=== PATIENT | female | born 1960 | race Caucasian/White ===

== ENCOUNTER → 2024-11-10 | Outpatient (CLI) | payer BC, SELFPAY ==
--- NOTE | 2024-11-10 | XR_ITS ---
Examination: Thoracic spine 3 views Technique one AP lateral coned lateral upper dorsal spine 3 views Exam date and time: November 10, 2024 1240 hours INDICATIONS: Patient fell 2 days ago with injury of the upper back, upper back pain. FINDINGS: Severe osteopenia Thoracic dextroscoliosis 17 degrees Chronic unchanged wedging mid dorsal vertebral bodies No acute thoracic fracture noted IMPRESSION: No acute thoracic fracture noted, advise clinical correlation and follow-up accordingly
--- NOTE | 2024-11-10 | XR_ITS ---
Examination: Left knee 4 views TECHNIQUE: AP oblique lateral axial left knee 4 views Exam date and time: November 10, 2024 1225 hours INDICATIONS: Patient fell 2 days ago with injury to the knee, knee pain. FINDINGS: Prominent osteopenia No acute fracture No patellar dislocation IMPRESSION: No acute fracture
--- NOTE | 2024-11-10 | XR_ITS ---
Examination: Lumbar spine, 5 views Technique: Lumbar spine AP, lateral, coned lateral lower lumbar spine, bilateral obliques 5 views Exam date and time: November 10, 2024 1225 hours INDICATIONS: Patient fell 2 days ago with injury to lower back, lower back pain. FINDINGS: Severe osteopenia No acute lumbar fracture Mild diffuse lumbar disc narrowing IMPRESSION: No acute lumbar fracture
--- NOTE | 2024-11-10 | XR_ITS ---
Examination: Sacrum and coccyx 3 views TECHNIQUE: AP inclined AP lateral sacrum and coccyx 3 views Exam date and time: November 10, 2024 1249 hours INDICATIONS: Patient fell 2 days ago with injury to the lower back, tailbone pain FINDINGS: Severe osteopenia. Symmetrical sacral foramina No acute sacral or coccygeal fracture IMPRESSION: No acute sacral or coccygeal fracture
--- NOTE | 2024-11-10 | XR_ITS ---
Examination: Cervical spine 7 views TECHNIQUE: AP, lateral, standing lateral flexion, standing lateral extension, AP odontoid, CALIX, FAROESE 7 views Exam date and time: November 10, 2024 1233 hours INDICATIONS: Cervical spine surgery one year ago, patient fell 2 days ago with injury to the neck, neck pain FINDINGS: Adequate alignment cervical vertebral bodies No cervical fracture Artificial disks C5-C6 C6-C7 with anatomic alignment Intact odontoid Adequate range of motion between flexion and extension No significant neural foraminal stenosis IMPRESSION: Artificial disc C5-C6, C6-C7 with anatomic alignment No cervical fracture Incidental note heavy soft tissue carotid vascular calcification, consider correlation with carotid Doppler sonography follow-up
--- NOTE | 2024-11-10 | XR_ITS ---
Examination:Right hip AP, lateral, AP pelvis 3 views Technique: Hip AP lateral, AP pelvis, 3 views Exam date and time:November 10, 2024 1225 hours INDICATIONS: Patient fell 2 days ago with injury to the right hip, right hip pain. FINDINGS: Severe osteopenia No right hip fracture or hip dislocation Left hip bones of the pelvis intact IMPRESSION: No acute hip or pelvic fracture.
== END | disposition home or self-care (01) ==
PROVIDERS: PCP Internal Medicine; Referring Provider Internal Medicine; Visit Provider Internal Medicine
DX: S89.92XA Unspecified injury of left lower leg, initial encounter (principal); S19.9XXA Unspecified injury of neck, initial encounter; S39.92XA Unspecified injury of lower back, initial encounter; S79.911A Unspecified injury of right hip, initial encounter; S29.9XXA Unspecified injury of thorax, initial encounter; W19.XXXA Unspecified fall, initial encounter; I65.29 Occlusion and stenosis of unspecified carotid artery
CPT/HCPCS: 72052; 72072; 72110; 72220; 73502; 73564

== ENCOUNTER → 2024-12-18 | Outpatient (CLI) | payer BC, SELFPAY ==
--- NOTE | 2024-12-18 13:00 | XR_ITS ---
Examination: Carotid arterial duplex scan, ultrasound. Date and time of exam: December 18, 2024 1244 hours INDICATIONS: Dizziness episodes beginning 6 months ago Technique: Multiple sonographic images have been obtained of the carotid arteries and vertebral arteries, B-mode/grayscale imaging and Doppler spectral analysis and color flow Peak systolic and diastolic velocities have been recorded. Systolic diastolic ratios have been calculated. Findings: Right peak systolic velocities: Distal internal carotid artery peak systolic velocity is 0.6 M/sec Proximal internal carotid artery peak systolic velocity is 0.9 M/sec Carotid bifurcation peak systolic velocity is 0.7 M/sec External carotid artery peak systolic velocity is 0.8 M/sec Vertebral artery flow is antegrade. Left peak systolic velocities: Distal internal carotid artery peak systolic velocity is 1.1 M/sec Proximal internal carotid artery peak systolic velocity is 1.0 M/sec Carotid bifurcation peak systolic velocity is 0.6 M/sec External carotid artery peak systolic velocity is 0.8 M/sec Vertebral artery flow is antegrade Doppler waveform analysis demonstrates no spectral broadening Impression: Right internal carotid artery demonstrates 0-10% stenosis. Left internal carotid artery demonstrates 0-10% stenosis.
--- NOTE | 2024-12-18 13:40 | XR_ITS ---
Examination: Bone densitometry Date and time of exam:December 18, 2024 1240 hours INDICATIONS: Family history mother hip fracture secondary to osteoporosis, hysterectomy age 42 knee fracture post hysterectomy Technique: Lumbar spine and hip total bone mineralization values of an calculated. Peak reference and age match control results have been displayed. Findings: Lumbar spine total bone mineralization is1.014 gm/cm2. This is 0.3 standard deviations below peak reference. This is 1.6 standard deviations above age-matched controls. Hip total bone mineralization is 0.792 gm/cm2 This is 1.2 standard deviations below peak reference. This is 0.1 standard deviations above age-matched controls Impression: There is normal mineralization based on lumbar spine measurements. There is osteopenia based on hip measurements Lumbar mineralization is decreased 3.2% compared with December 29, 2009 Hip mineralization is decreased 15.7% compared with December 21, 2009
== END | disposition home or self-care (01) ==
PROVIDERS: PCP Internal Medicine; Referring Provider Internal Medicine; Visit Provider Internal Medicine
DX: M85.88 Other specified disorders of bone density and structure, other site (principal); R42 Dizziness and giddiness
CPT/HCPCS: 77080; 93880

== ENCOUNTER 2025-01-18 09:43 | Inpatient (IN) | payer BC, MEDICARE, SELFPAY ==
[2025-01-18] VITALS (10 sets, daily range): BP systolic 111–160; BP diastolic 62–83; PULSE 53–69; RESP 17–19; TEMP 36.1–37.3; O2SAT 91–99; BMI 24.8
--- NOTE | 2025-01-18 09:47 | XR_ITS ---
Examination: AP chest single view Technique: Portable semiupright AP chest single view Exam date and time: January 18, 2025 1006 hrs. Indications: Lethargy chest pain today Findings: Normal heart size. The lungs are clear. Moderate osteopenia with cervical disc spacers Impression: No active disease
--- NOTE | 2025-01-18 09:47 | EKG_ITS ---
[facility] Test Date: 2025-01-18 Pat Name: CHASIDY GUERRERO Department: Room: - Gender: Female [employer]: : [id number] Requested By: Augustine Urena Order Number: [id number] Reading MD: Augustine Urena Measurements Intervals [place] Rate: 47 P: 28 WA: 188 QRS: 48 QRSD: 100 T: 64 QT: 538 QTc: 479 Interpretive Statements SINUS BRADYCARDIA WITH SINUS ARRHYTHMIA MODERATE ST DEPRESSION [0.05+ mV ST DEPRESSION] PROLONGED QT INTERVAL CRITICAL TEST RESULT Compared to ECG 09/24/2023 07:55:56 ST (T wave) deviation now present Prolonged QT interval now present Sinus rhythm no longer present Myocardial infarct finding no longer present /store/S0/[id number].pdf
--- NOTE | 2025-01-18 09:47 | XR_ITS ---
Examination: CT brain head without contrast. 2-D sagittal coronal reconstructions Date and time of exam:January 18, 2025 10 0 2:00 AM Indications: Weakness and apnea episodes beginning 8:30 AM this morning CTDI: vol (mGy):50.6 DLP: (mGycm):1024 Technique: Multiple CT axial sections of the brain have been obtained, 5 mm slice thickness. Contrast has not been administered. 2-D sagittal, coronal reconstructions have been obtained Low dose protocols were performed. One or more of the following dose reduction techniques were used; automated exposure control, adjustment of the mA and/or KV according to patient size, use of iterative reconstruction technique. Findings: No significant ventricular enlargement. Intra-axial or extra-axial hemorrhage density is not seen. No mass effect or midline shift Basal cisterns are not remarkable. Fourth ventricle is midline. Cranial vault intact. Impression: Negative for acute hemorrhage, mass effect or midline shift Advise clinical correlation follow-up accordingly
--- NOTE | 2025-01-18 10:04 | EDNOTE_ITS ---
ED General RME/HPI General Chief complaint: Weakness Stated complaint: GENERAL WEAKNESS Time Seen by Provider: 01/18/25 10:40 Arrival date/time: 01/18/25 09:43 RME / HPI RME / HPI narrative: Patient is a 65 years old female with PMH of hypertension and anxiety presented to the ED after was found extremely somnolent in her bed. She complains of BLE pain, lower abdomen pain, periodic chest pain and SOB. She is very anxious on presentation. She is extremely anxious and agitated. Her and daughters are at the bedside. Patient reports she took hydroxyzine last night for sleep. She took this medication before and never had any reactions. She was started on Sertraline in September and dose was increased in November, no side effects were reported. reported that they both had papular rash over their lower body approximately 1 month ago and were prescribed steroids with resolution of rash. The rash came back 1.5 weeks ago for patient only and she was again started on steroids for 5 days and rash has resolved. Today morning she woke up very tired, tried to ambulated but wasn't able to due to severe generalized weakness. Patient reported worsening of chronic diarrhea over the last 2 days for unknown reason. She denied any fever, chills, melena or hematoschezia. She reports nausea but no vomiting. Related Data Home Medications ?Medication ?Instructions ?Recorded ?Confirmed HCTZ/TRIAMTERENE (DYAZIDE 25/37.5) See Rx Instructions .Route 05/08/16 01/18/25 .COMPLEX ##30 gabapentin 300 mg capsule 300 mg PO QDAY 11/27/2301/13 hydroxyzine HCl 25 mg tablet 25 mg PO QDAY 01/18/25 loratadine 10 mg tablet (Allergy 10 mg PO Q24H 5 01/18/25 Relief (loratadine)) ondansetron HCl 4 mg tablet 4 mg PO Q6H PRN nausea and vomiting 01/18/25 01/18/25 sertraline 50 mg tablet 50 mg PO Q24H 01/18/2501/18 Previous Rx's ?Medication ?Instructions ?Recorded hydrocodone 5 mg-acetaminophen 325 1 tab PO BID PRN pa in #14 tabs 11/08/23 mg tablet methylprednisolone 4 mg tablets in See Rx Instructions PO PER PKG DIR 03/04/24 a dose pack (Medrol (Shahid)) #21 tabs Allergies Allergy/AdvReac Type Severity Reaction Status Date / Time codeine Allergy Mild Anaphylaxis Verified 11/30/23 09:04 tramadol Allergy Verified 11/30/23 09:04 Review of Systems Review of Systems Systems Reviewed: All systems reviewed, normal except as documented ED Exam Narrative Physical exam: Gen: Well-developed and well-nourished female. HEENT: NCAT, PERRLA, EOMI, MMM, anicteric conjunctivae. CVS: normal S1 and S2. RRR. No M/R/G. Resp: CTA B/L. No rhonchi, rales, crackles or wheezing. Abd: soft, tender in lower abdomen, non-distended. BS+ in all 4 quadrants. MSK: Good ROM in BUE & BLE. No edema. Varicose veins over BLE. Both legs are tender to touch. Neuro: CN II-XII grossly intact. Strength 5/5 in BUE & BLE. Alert and oriented x3. Psych: extremely anxious and restless. Course Course Course Narrative: Patient refused to take PO medication due to nausea. Her QTc was prolonged and she was given Ativan 0.5 mg for nausea and anxiety. She was found to have significant hypokalemia and hypophosphatemia. EKG showed sinus bradycardia. Started on potassium phosphate IV. Hospitalist team was called for admission for observation and electrolyte repletion. Quality Measures none Orders Category Date Time Status COVID-19 Screening Questionnaire NOW Care 01/18/25 11:18 Active Decision to Admit X1 Care 01/18/25 11:18 Completed EKG (ED ONLY) *Do not use* NOW Care 01/18/25 09:47 Completed IV [Insert IV] NOW Care 01/18/25 09:[address] head/brain wo con Stat Exams 01/18/25 09:47 Completed CXRP [XR chest 1V portable] Stat Exams 01/18/25 09:47 Completed EKG (ED Only) Stat Exams 01/18/25 09:47 Draft CBC Stat Lab 01/18/25 09:58 Completed CMP [Comprehensive Metabolic Panel] Stat Lab 01/18/25 09:58 Completed Magnesium Stat Lab 01/18/25 09:58 Completed Phosphorous Stat Lab 01/18/25 09:58 Completed Troponin I Stat Lab 01/18/25 09:58 Completed Urinalysis Stat Lab 01/18/25 12:58 Completed LORazepam [Ativan Inj] Med 01/18/25 10:54 Discontinued 0.5 mg IVP X1 ONE LORazepam [Ativan] Med 01/18/25 10:41 Discontinued 0.5 mg PO X1 ONE Potassium Phos [KPhos Additive] 22.5 mmol Med 01/18/25 10:58 Discontinued Sodium Chloride 0.9% 500 ml [Ns] 500 ml IV X1 Vital Signs Vital signs: Vital Signs Temperature 99.1 F 01/18/25 09:50 Pulse Rate 67 01/18/25 09:50 Respiratory Rate 18 01/18/25 09:50 Blood Pressure 158/83 H 01/18/25 09:50 Pulse Oximetry (%) 99 01/18/25 09:50 Oxygen Delivery Method Room Air 01/18/25 09:50 [facility] Patient data External records reviewed:: [facility] previous records Clinical information provided by:: patient, family and spouse Social determinants that could affect healthcare access:: none Patient has the following chronic illnesses:: HTN, anxiety How is presenting disease/condition affected by chronic disease/condition?: e xacerbated by Evaluation data The following diagnostics were reviewed and interpreted by me:: lab results, radiology exam(s) and EKG tracing(s) Lab and/or radiology exams considered but not ordered:: CTA Interpretation Summary: Patient was found to have sinus bradycardia, hypophosphatemia and hypokalemia. Utox was positive for THC. Medications Medications considered but not ordered:: none Medication administrations:: Medication Administration History Acetaminophen (Acetaminophen 325 Mg Tablet) 650 mg PO Q6HR PRN PRN Reason: Fever >101 and mild pain Stop: 02/17/25 14:12 Last Admin: 01/19/25 00:17 Dose: 650 mg Documented By: Admin: 01/18/25 16:35 Dose: 650 mg Documented By: WERNER Dextrose (Dextrose 50%-Water Inj 50 Ml Syringe) 25 ml IV Q15MIN PRN PRN Reason: BG 50-70 responsive npo pt Stop: 02/17/25 12:34 Dextrose (Dextrose 50%-Water Inj 50 Ml Syringe) 50 ml IV Q15MIN PRN PRN Reason: BG <50 OR BG <70 & pt unresponsive Stop: 02/17/25 12:34 Enoxaparin Sodium (Enoxaparin Sod Inj 40 Mg/0.4 Ml Syringe) 40 mg SC QDAY [facility] Stop: 02/02/25 08:59 Potassium Chloride (Kcl Ivpb) 10 meq in 100 mls @ 100 mls/hr IV Q1H IKE Last Admin: 01/19/25 00:02 Dose: Not Given Documented By: MLD Non-Admin Reason: ON HOLD BY MD Infusion: 01/18/25 19:59 Dose: Infused Documented By: Infusion: 01/18/25 18:54 Dose: 40 mls/hr Documented By: Admin: 01/18/25 18:33 Dose: 100 mls/hr Documented By: BM Sertraline HCl (Sertraline Hcl 25 Mg Tablet) 50 mg PO HS [facility] Stop: 02/17/25 20:59 Last Admin: 01/18/25 20:58 Dose: 50 mg Documented By: MLD Discontinued Medications Potassium Phosphate 22.5 mmol/ (Sodium Chloride) 507.5 mls @ 82.778 mls/hr IV X1 ONE Stop: 01/18/25 17:05 Last Admin: 01/18/25 11:30 Dose: 82.778 mls/hr Documented By: ED Lorazepam (Lorazepam 0.5 Mg Tablet) 0.5 mg PO X1 ONE Stop: 01/18/25 10:42 Last Admin: 01/18/25 11:05 Dose: Not Given Documented By: ED Non-Admin Reason: Duplicate Medication on eMAR Lorazepam (Lorazepam 2 Mg/Ml Vial) 0.5 mg IVP X1 ONE Stop: 01/18/25 10:55 Last Admin: 01/18/25 11:01 Dose: 0.5 mg Documented By: ED Ondansetron HCl (Ondansetron Inj 2 Mg/Ml Inj 2 Ml) 4 mg IV Q4HR PRN PRN Reason: NAUSEA OR VOMITING Stop: 02/17/25 11:59 Potassium Chloride (Potassium Chloride 20 Meq Tabcr) 20 meq PO X1 ONE Stop: 01/18/25 16:54 Last Admin: 01/18/25 17:06 Dose: Not Given Documented By: BM Non-Admin Reason: Cancelled by Provider Potassium Chloride (Potassium Chloride 20 Meq Tabcr) 40 meq PO X1 ONE Stop: 01/18/25 16:57 Last Admin: 01/18/25 17:11 Dose: Not Given Documented By: WERNER Non-Admin Reason: switched to liquid Potassium Chloride (Potassium Chloride 10% 20 Meq/15 Ml Udc) 40 meq PO X1 ONE Stop: 01/18/25 17:09 Last Admin: 01/18/25 17:17 Dose: 40 meq Documented By: WERNER Potassium Chloride (Potassium Chloride 10% 20 Meq/15 Ml Udc) 40 meq PO X1 ONE Stop: 01/18/25 19:59 Last Admin: 01/18/25 20:12 Dose: 40 meq Documented By: MLD Potassium Chloride (Potassium Chloride 20 Meq Tabcr) 40 meq PO X1 ONE Stop: 01/18/25 23:47 Last Admin: 01/19/25 00:04 Dose: 40 meq Documented By: VANCE Scopolamine (Scopolamine 1 Mg Tdsy) 1 mg TOP Q3D IKE Stop: 01/18/25 18:31 Last Admin: 01/18/25 18:32 Dose: 1 mg Documented By: WERNER Ativan 0.5 mg x1. Consultations Consultation(s) initiated? (list below): No Diagnosis Differential Diagnosis ED Complaint MDM: Anxiety reaction, THC intoxication, medication overdose or reaction Most likely diagnosis given after review of the tests above:: Medication reaction or overdose Admission Indicated Admission indicated?: indicated Explain why admission is indicated or not indicated:: Patient has significant electrolyte abnormalities and EKG changes requiring closer observation and electrolyte repletion. Admission Request Was there a request for admission?: Yes Admission Attestation Admission request attestation: Discussed case with Dr. Fernández from Hospitalist service regarding admission. Discussed patients ED course, exam findings, labs, and radiology results. The Hospitalist agrees to accept the patient for admission. Disposition Plan Disposition Plan: Admit Medical Decision Making MDM Narrative MDM Narrative: Patient presented with inconsistent medical history with multiple complaints which do not fit clinical picture of acute CVA. Patient was extremily anxious and emotional but her heart rate remained low at 40s. Given medical history, clinical presentation and significant electrolyte abnormalities and EKG changes (sinus bradycardia and QTc prolongation) we decided to admit patient for closer monitoring, electrolyte repletion and further investigation. Differential Diagnosis Differential Diagnosis: Anxiety reaction, THC intoxication, medication overdose or reaction Lab Data 01/19/25 05:45 01/18/25 22:17 Labs: Lab Results 01/18/25 Range/Units 09:58 WBC 12.3 H (3.6-11.0) Thou/mm3 RBC 5.07 (4.00-5.20) Miln/mm3 Hgb 12.2 (12.0-16.0) g/dL Hct 38.3 (36.0-46.0) % MCV 76 L (80-100) fL MCH 24.1 L (25.0-35.0) pg MCHC 31.9 (31.0-37.0) g/dl RDW Std Deviation 41.2 (36.4-46.3) fL Plt Count 462 H (140-440) Thou/mm3 Neut % (Auto) 69 (37-80) % Lymph % (Auto) 19 (10-50) % [place] % (Auto) 10 (0-12) % Eos % (Auto) 1 (0-10) % Baso % (Auto) 1 (0-2.5) % Neut # (Auto) 8.4 H (1.8-7.7) Thou/mm3 Lymph # (Auto) 2.3 (1.0-4.8) Thou/mm3 [place] # (Auto) 1.3 H (0.0-0.8) Thou/mm3 Eos # (Auto) 0.1 (0.0-0.5) Thou/mm3 Baso # (Auto) 0.1 (0.0-0.2) Thou/mm3 Immature Gran # (Auto) 0.04 H (0.00-0.00) Thou/mm3 Absolute Nucleated RBC 0.00 (0.00-0.00) Thou/mm3 Immature Gran % 0 (0-0) % Nucleated RBC % 0 (0) /100 WBC Sodium 141 (136-145) mMol/L Potassium 2.4 L* (3.4-5.1) mMol/L Chloride 96 L (98-107) mMol/L Carbon Dioxide 35.5 H (20.0-31.0) mMol/L Anion Gap 10 (7-16) BUN 12 (9-23) mg/dL Creatinine 0.9 (0.6-1.3) mg/dL Estim Creat Clear Calc 50.3 L (>60) mL/min eGFR > 60 (60 - ) See Note BUN/Creatinine Ratio 13 (12-20) Ratio Glucose 104 (74-106) mg/dL Calculated Osmolality 280 (275-295) Calcium 10.3 (8.3-10.6) mg/dL Corrected Calcium 10.3 H (8.5-10.1) mg/dL Phosphorus 1.6 L (2.4-5.1) mg/dL Magnesium 2.3 (1.6-2.6) mg/dL Iron 61 (50-170) mcg/dL TIBC 491 H (250-425) mcg/dL Iron Saturation 12 L (20-55) % Unsat Iron Binding 430 H (225-295) Total Bilirubin 0.9 (0.3-1.2) mg/dL AST 25 (0-34) U/L ALT 14 (10-49) U/L Alkaline Phosphatase 93 (46-116) U/L Troponin I 0.048 H* (0.0-0.045) ng/mL Total Protein 7.4 (5.7-8.2) gm/dL Albumin 4.7 (3.4-4.8) gm/dL Globulin 2.7 (2.3-3.5) gm/dL Albumin/Globulin Ratio 1.7 (1.2-2.2) Discharge Plan Plan Patient Disposition: Admit Acute Care w/in Hospital Disposition Comment: RM [id number] Problem List Clinical Impression: Medication reaction, Intoxication by drug, Electrolyte imbalance, Bradycardia, sinus
[2025-01-18 10:33] LABS: Basophils # (Auto) 0.1 Thou/mm3 (0.0-0.2); Basophils % (Auto) 1 % (0-2.5); Eosinophils # (Auto) 0.1 Thou/mm3 (0.0-0.5); Eosinophils % (Auto) 1 % (0-10); Hematocrit 38.3 % (36.0-46.0); Hemoglobin 12.2 g/dL (12.0-16.0); Immature Granulocytes % (Auto) 0 % (0-0); Immature Granulocytes Auto 0.04 Thou/mm3 (0.00-0.00); Lymphocytes # (Auto) 2.3 Thou/mm3 (1.0-4.8); Lymphocytes % (Auto) 19 % (10-50); Mean Corpuscular HGB Conc 31.9 g/dl (31.0-37.0); Mean Corpuscular Hemoglobin 24.1 pg (25.0-35.0); Mean Corpuscular Volume 76 fL (80-100); Monocytes # (Auto) 1.3 Thou/mm3 (0.0-0.8); Monocytes % (Auto) 10 % (0-12); Neutrophils # (Auto) 8.4 Thou/mm3 (1.8-7.7); Neutrophils % (Auto) 69 % (37-80); Nucleated Red Blood Cell % 0 /100 WBC (0); Platelet Count 462 Thou/mm3 (140-440); RDW Standard Deviation 41.2 fL (36.4-46.3); Red Blood Count 5.07 Miln/mm3 (4.00-5.20); White Blood Count 12.3 Thou/mm3 (3.6-11.0)
--- NOTE | 2025-01-18 10:43 | PC.NURSE ---
Pt. here from home to room 2, pt. states yesterday she had diarrhea X 2, pt. states she is having pain to the left lower abdominal quadrant, pt. denies any vomiting. Pt. states that this morning she started feeling weak. Pt.'s states that pt. woke up and stated she was weak and stated she wanted to go to [facility] and then the hospital. Spouse states that pt. took a shower and then sat down on the toilet stating she felt weaker. Pt. then stated she wanted to go to the hospital. Pt. states her legs were itching last night. Pt. has min. bruising to her hands bilateral.
[2025-01-18 10:53] LABS: Alanine Aminotransferase 14 U/L (10-49); Albumin, Serum 4.7 gm/dL (3.4-4.8); Albumin/Globulin Ratio 1.7 (1.2-2.2); Alkaline Phosphatase 93 U/L (46-116); Anion Gap 10 (7-16); Aspartate Amino Transferase 25 U/L (0-34); BUN/Creatinine Ratio 13 Ratio (12-20); Bilirubin,Total 0.9 mg/dL (0.3-1.2); Blood Urea Nitrogen 12 mg/dL (9-23); Calcium 10.3 mg/dL (8.3-10.6); Calcium (Corrected) 10.3 mg/dL (8.5-10.1); Carbon Dioxide 35.5 mMol/L (20.0-31.0); Chloride 96 mMol/L (98-107); Creatinine (Component) 0.9 mg/dL (0.6-1.3); Estimated Creatinine Clearance 50.3 mL/min (>60); Globulin 2.7 gm/dL (2.3-3.5); Glucose 104 mg/dL (74-106); Magnesium 2.3 mg/dL (1.6-2.6); Osmolality,Calculated 280 (275-295); Phosphorous 1.6 mg/dL (2.4-5.1); Sodium 141 mMol/L (136-145); Total Protein 7.4 gm/dL (5.7-8.2); eGFR > 60 See Note
[2025-01-18 10:56] LABS: Potassium 2.4 mMol/L (3.4-5.1); Troponin I 0.048 ng/mL (0.0-0.045)
[2025-01-18] MEDS: LORazepam 2 MG/ML VIAL 0.5 MG IVP (11:01)
[2025-01-18] MEDS: POTASSIUM PHOS 22.5 MMOL in SODIUM CHLORIDE 0.9% 500 ML 500 ML 82.778 MMOL IV (11:30)
--- NOTE | 2025-01-18 12:00 | XR_ITS ---
Examination: CTA carotids with intravenous contrast CTA brain, head with intravenous contrast. 2-D sagittal, coronal reconstructions. 3-D reconstructions. Exam date and time: December 21, 2024 1210 hrs. Indications: Hypokalemia weakness abdominal pain today CTDI: vol (mGy) 15.1 DLP: (mGycm) 423 Technique: Multiple CTA axial brain, head carotid images post intravenous contrast injection 75 cc cc, [id number]. 2-D sagittal, coronal reconstructions. 3-D reconstructions, 3-D post processing including vascular maximum intensity projection images. Low dose protocols were performed. One or more of the following dose reduction techniques were used; automated exposure control, adjustment of the mA and/or KV according to patient size, use of iterative reconstruction technique. Findings: No significant common carotid carotid bifurcation or internal carotid artery stenoses Codominant vertebral arteries with no critical stenoses Intracranial vertebral arteries basilar artery posterior cerebral branches fill with no occlusions Juxtasellar internal carotid arteries M1 segments middle cerebral arteries middle cerebral artery trifurcation vessels anterior cerebral arteries demonstrate no large vessel occlusions or thrombus Impression: No significant neck arterial stenoses No cerebral large vessel arterial occlusions or thrombus
--- NOTE | 2025-01-18 12:11 | PC.NURSE ---
Dr. Yessica Alberts on tele monitor, pt. in CT for CT angio, stroke alert called at 1200, gave Dr. Alberts requested information.
[2025-01-18 12:15] LABS: Iron 61 mcg/dL (50-170); Percent Iron Saturation 12 % (20-55); Total Iron Binding Capacity 491 mcg/dL (250-425); Unsaturated Iron Binding 430 (225-295)
--- NOTE | 2025-01-18 12:22 | PD.RESHP ---
Documentation for date of: 01/18/25 [facility] History of Present Illness History of present illness: Ms. Aguilar is a 65 year old female with past medical history significant for hypertension, depression and degenerative bone disease presented to the ED complaing of generalized weakness and confusion. Pt is sleeping therefore history is taken from and daughter at bedside. Per , patient has been feeling generalized weakness yesterday evening and this morning when she woke up patient was very weak requiring help with shower, but couple hours later patient started becoming increasingly confused. Pt was unable to perform ADL and was requing assitance. When patient's daughter arrived this morning at their home patient was somnolent, laying in bed was unable to get out of bed and was complaining of leg pain and hard feeling funny and waxing and waning of confusion. Per daughter patient was having slurred speech and was not able to get the words out on the sounds she was making sounds with her mouth that did not make sense. She was not able to formulate sentences. Pt also could not feel her right arm. Patient runs a daycare center therefore she has been having flu-like symptoms and some nausea for the past week and a half. Denies any previous history of similar episodes. Per daughter patient has been complaining of legs pain as well but patient has degenerative bone disease and sees Dr. Lewis and has an appointment coming up with him next week. Pt's zoloft dose was increased from 25mg to 50mg couple months ago and was recently started on atarax and steroids for generalized pruritus 1.5 month ago. ED course: vitals: BP 158/83 Labs: WBC 12.3, MCV 76, MCH 24.1, Plt 462, Potassium 2.4, chloride 96, Bicarb 35.5, corrected calcium 10.3, phosphorus 1.6, Troponin 0.048 Urinalysis - negative Urine tox: positive for marijuana Images: CXR:No active disease, Moderate osteopenia with cervical disc spacers Head CT: Negative for acute hemorrhage, mass effect or midline shift Head CTA: No significant neck arterial stenoses, No cerebral large vessel arterial occlusions or thrombus EKG: Sinus bradycardia with prolonged QT interval PMH:Hypertension, depression, degenerative bone disease PSH: Gastric bypass surgery more than 15 years ago with a revision 10 years ago, spinal surgeries x2, tonsillectomy, appendectomy, hysterectomy SH: Former tobacco smoker (quit 20 years ago), smokes marijuana, denies illicit drugs and alcohol Allergies: Codeine and tramadol Home Meds: triamterene-hctz, sertraline, hydroxyzine, acyclovir Review of Systems Review of Systems Systems Reviewed: All systems reviewed, normal except as documented Exam Vital Signs Temp Pulse Resp BP Pulse Ox O2 Del Method 98.3 F 65 17 136/81 H 95 Room Air 01/18/25 11:35 01/18/25 11:35 01/18/25 11:35 01/18/25 11:35 01/18/25 11:35 01/18/25 11:35 Narrative Exam GENERAL: A&Ox3 . Awake, Not in acute distress NEURO: no focal neurological deficits HEENT: Atraumatic, Normocephalic. mucous membranes moist. Eyes open, symmetrical, & clear HEART: Normal Heart Sounds LUNGS: Clear to auscultation with no wheezing or crackles. ABDOMEN: soft, non-distended, non-tender, bowel sounds heard, no guarding or rebound tenderness SKIN: No Rash or ecchymoses EXTREMITIES: No edema, tenderness, pedal pulses palpated NEURO:? ? MENTAL STATUS:?AAOx3 ? LANG/SPEECH: Fluent, intact naming, repetition & comprehension ? CRANIAL NERVES: ? II: Pupils equal and reactive, no RAPD,?normal visual field and fundus ? III, IV, : EOM intact, no gaze preference or deviation ? V: normal ? VII: no facial asymmetry ? VIII: normal hearing to speech ? MOTOR: Weakness bilaterally on lower extremities ? SENSORY: Normal to touch, temperature & pin prick in all extremities ? COORD: no tremor, no dysmetria Results: Labs 01/19/25 05:45 01/19/25 05:45 Labs: Short CBC 01/18/25 Range/Units 09:58 WBC 12.3 H (3.6-11.0) Thou/mm3 Hgb 12.2 (12.0-16.0) g/dL Hct 38.3 (36.0-46.0) % Plt Count 462 H (140-440) Thou/mm3 BMP 01/18/25 09:58 Sodium 141 Potassium 2.4 L* Chloride 96 L Carbon Dioxide 35.5 H BUN 12 Creatinine 0.9 Glucose 104 Calcium 10.3 Cardiac Enzymes 01/18/25 Range/Units 09:58 Troponin I 0.048 H* (0.0-0.045) ng/mL Liver Function 01/18/25 Range/Units 09:58 Total Bilirubin 0.9 (0.3-1.2) mg/dL AST 25 (0-34) U/L ALT 14 (10-49) U/L Alkaline Phosphatase 93 (46-116) U/L Albumin 4.7 (3.4-4.8) gm/dL Quality Measures Quality Measures stroke Suspected type of Stroke: Acute Ischemic Tenecteplase given: Reason(s) Tenecteplase not given: Outside the time window not given Rehab services: PT evaluation ordered and Speech Language Pathology eval ordered VTE Prophylaxis: pharmaceutical Antithrombotic by day 2:: not indicated (describe) Statin ordered: not ordered Anticoagulation ordered for A-fib or flutter (current or hx): not indicated Advance care planning discussed with:: significant other and child Medications Home Medications and Allergies Home Medications ?Medication ?Instructions ?Recorded ?Confirmed ?Type HCTZ/TRIAMTERENE (DYAZIDE 25/37.5) See Rx Instructions .Route 05/08/16 01/18/25 History .COMPLEX ##30 gabapentin 300 mg capsule 300 mg PO QDAY 11/27/23 01/18/25 History hydroxyzine HCl 25 mg tablet 25 mg PO QDAY 01/18/25 01/18/25 History loratadine 10 mg tablet (Allergy 10 mg PO Q24H 01/18/25 01/18/25 History Relief (loratadine)) ondansetron HCl 4 mg tablet 4 mg PO Q6H PRN nausea and vomiting 01/18/25 01/18/25 History sertraline 50 mg tablet 50 mg PO Q24H 01/18/25 01/18/25 History Allergies Allergy/AdvReac Type Severity Reaction Status Date / Time codeine Allergy Mild Anaphylaxis Verified 11/30/23 09:04 tramadol Allergy Verified 11/30/23 09:04 Visit Medications Potassium Phosphate 22.5 mmol/ (Sodium Chloride) 507.5 mls @ 82.778 mls/hr IV X1 ONE Stop: 01/18/25 17:05 Last Admin: 01/18/25 11:30 Dose: 82.778 mls/hr Ondansetron HCl (Ondansetron Inj 2 Mg/Ml Inj 2 Ml) 4 mg IV Q4HR PRN PRN Reason: NAUSEA OR VOMITING Stop: 02/17/25 11:59 Discontinued Medications Lorazepam (Lorazepam 0.5 Mg Tablet) 0.5 mg PO X1 ONE Stop: 01/18/25 10:42 Last Admin: 01/18/25 11:05 Dose: Not Given Lorazepam (Lorazepam 2 Mg/Ml Vial) 0.5 mg IVP X1 ONE Stop: 01/18/25 10:55 Last Admin: 01/18/25 11:01 Dose: 0.5 mg Assessment & Plan Plan Ms. Aguilar is a 65 year old female with past medical history significant for hypertension, depression and degenerative bone disease presented to the ED complaining of generalized weakness and confusion. #Acute encephalopathy DDx: toxic metabolic, Acute CVA Teleneuro was consulted, with recommendation of MRI pending to rule out CVA. CVA r/o -LKW: Unknown ( at bedside says pt complained of weakness last night 01/17) -NIHSS Score: 1 -pre morbid rank: scale0 Points = No symptoms at all -Tele neuro consulted, recommendations appreciated -Head CT: Negative for acute hemorrhage, mass effect or midline shift -Head CTA: No significant neck arterial stenoses, No cerebral large vessel arterial occlusions or thrombus Plan: - Neuro checks q6HR - Keep head of bed elevated at 30 degrees -?limit sedating meds - Euglycemia and Avoid Hyperthermia (PRN Acetaminophen) -?allow permissive HTN for first 24 hours than slowly and gradually goal normotension thereafter -?uunhl-izzppzdot-tslnuqecsq workup (especially with U/A, UDS, CXR) -?MRI brain ordered -?echo with bubble study ordered - follow up lipid panel, HbA1c, TSH with free T4 - Referral to PT/OT/speech therapy -Tele neuro recommended: consider routine EEG to look for encephalopathic vs epileptiform patterns -In house neurologist Dr. Fontana consulted, appreciate recommendations #Bradycardia #Hypokalemia in the setting of #Metabolic alkalosis #Hypophosphatemia -On admission potassium 2.4, Pt receive Kphos, repeat potassium 2.0 -additional 80meq of K repleated -will monitor renal panel closely -On admission phosphorous 1.6, likely secondary to poor oral intake #elevated troponin -likely demand ischemia, Pt denies chest pain -On admission troponin 0.048 ->0.041 -trending troponin #Suspicion for microcytic anemia #Hx. of gastric bypass surgery -CBC shows MCV 76, MCHC 24.1, hemaglobin is 12.3 -Iron panel: Iron 61, TIBC 491, Iron saturation 12%, unsat Iron binding 430 -Pt has a history of gastric bypass surgery with a revision -B12 and folate ordered #Depression -Pt's home zoloft is resumed #substance abuse -Pt endorses to smoking marijuana daily -Urine tox is positive for maijuana Health Maintenance Disposition: Telemetry- acute CVA rule out DVT Prophylaxis: enoxaparin 40mg Qdaily Lines: Peripheral lines Code status: Full Assessment and plan discussed with my senior resident Dr. Fernández & attending physician Dr. Ara Dobson (PGY-1)- Internal medicine resident
--- NOTE | 2025-01-18 12:54 | PD.TNEURO ---
Tele Neuro Consultation Consultation Date 01/18/25 Most Recent Vital Signs Last Vital Signs Temp 98.3 F 01/18/25 11:35 Pulse 65 01/18/25 11:35 Resp 17 01/18/25 11:35 BP 136/81 H 01/18/25 11:35 Pulse Ox 95 01/18/25 11:35 O2 Del Method Room Air 01/18/25 11:35 Consultation Narrative [facility] Tele[facility] Patient Name:???Anjelica Aguilar Date of :???1960 Identification Number:??? Date of Service:???01/18/2025 12:02:07 Diagnosis:?G93.49 - Encephalopathy Multifactorial Impression: ?65 yr old female with sig PMHx of HTN, depression per a daughters (who are nurses), TLKW last night, woke up feeling weak and confused and has episodes of staring spells. she also had been complaining of right arm numbness. an initial CT head was non acute. she was found to be hypokalemic (K 2.4). she was started on atarax and steroids. ? ?NIHSS = 1 she is lethargic recently received Ativan. ? ?CTA head and neck No LVO ? ?MRI brain is scheduled ? ?DDX suspect more encephalopathic picture, vs consider TIA, or partial seizure .. ? ? Our recommendations are outlined below. Recommendations: ? Stroke/Telemetry Floor ? Neuro Checks ? Bedside Swallow Eval ? DVT Prophylaxis ? IV Fluids, Normal Saline ? Head of Bed 30 Degrees ? Euglycemia and Avoid Hyperthermia (PRN Acetaminophen) ?pending her hospital course and brain MRI consider routine EEG to look for encephalopathic vs epileptiform patterns Sign Out: ? Discussed with Primary Attending Advanced Imaging: CTA Head and Neck Completed. LVO:No Patient in not a candidate for ABDIRAHMAN Metrics: Last Known Well: Unknown Dispatch Time: 01/18/2025 12:02:07 Initial Response Time: 01/18/2025 12:04:27Symptoms: right arm weakness and numbness. Initial patient interaction: 01/18/2025 12:14:32 NIHSS Assessment Completed: 01/18/2025 12:32:00Patient is not a candidate for Thrombolytic. Thrombolytic Medical Decision: 01/18/2025 12:32:02Patient was not deemed candidate for Thrombolytic because of following reasons: LKW outside 4.[address] head showed no acute hemorrhage or acute core infarct. Primary Provider Notified of Diagnostic Impression and Management Plan on: 01/18/2025 13:25:48 Spoke With: Dr Dobson Able to Reach 01/18/2025 13:25:48 History of Present Illness:Patient is a 65 year old Female. Inpatient stroke alert was called for symptoms of right arm weakness and numbness. 65 yr old female with sig PMHx of HTN, depression per a daughter Carotid artery disease, TLKW last night, woke up feeling weak and confused and has episodes of staring spells. she also had been complaining of right arm numbness. an initial CT head was non acute. she was found to be hypokalemic. she was started on atarax and steroids. Past Medical History: ?Hypertension ?There is no history of Diabetes Mellitus ?There is no history of Hyperlipidemia ?There is no history of Atrial Fibrillation ?There is no history of Coronary Artery Disease ?There is no history of Stroke ?There is no history of Covid-19 ?There is no history of Seizures ?There is no history of Migraine Headaches ?There is no history of Dementia/MCI Medications: No Anticoagulant use? No Antiplatelet use Reviewed EMR for current medications Allergies:? Reviewed Social History: Patient Is: Smoking: Former Drug Use: No Family History: There is no family history of premature cerebrovascular disease pertinent to this consultation ROS : 14 Points Review of Systems was performed and was negative except mentioned in HPI. Past Surgical History: There Is No Surgical History Contributory To Today?s Visit NIHSS may not be reliable due to: patient lethargic, [facility] Examination: BP(136/81),?Pulse(64),?Blood Glucose(111) 1A: Level of Consciousness - Arouses to minor stimulation?+ 1 1B: Ask Month and Age - Both Questions Right?+ 0 1C: Blink Eyes & Squeeze Hands - Performs Both Tasks?+ 0 2: Test Horizontal Extraocular Movements - Normal?+ 0 3: Test Visual Delgado - No Visual Loss?+ 0 4: Test Facial Palsy (Use Grimace if Obtunded) - Normal symmetry?+ 0 5A: Test Left Arm Motor Drift - No Drift for 10 Seconds?+ 0 5B: Test Right Arm Motor Drift - No Drift for 10 Seconds?+ 0 6A: Test Left Leg Motor Drift - No Drift for 5 Seconds?+ 0 6B: Test Right Leg Motor Drift - No Drift for 5 Seconds?+ 0 7: Test Limb Ataxia (FNF/Heel-Schultz) - No Ataxia?+ 0 8: Test Sensation - Normal; No sensory loss?+ 0 9: Test Language/Aphasia - Normal; No aphasia?+ 0 10: Test Dysarthria - Normal?+ 0 11: Test Extinction/Inattention - No abnormality?+ 0 NIHSS Score:?1 Pre-Morbid Modified Mitesh Scale:0 Points = No symptoms at all Spoke with :?Dr Dobson This consult was conducted in real time using interactive audio and video technology. Patient was informed of the technology being used for this visit and agreed to proceed. Patient located in hospital and provider located at home/office setting. Patient is being evaluated for possible acute neurologic impairment and high probability of imminent or life-threatening deterioration. I spent total of 40 minutes providing care to this patient, including time for face to face visit via telemedicine, review of medical records, imaging studies and discussion of findings with providers, the patient and/or family. Dr Yessica Alberts [facility] For Inpatient follow-up with [facility] physician please call [facility] at . As we are not an outpatient service for any post hospital discharge needs please contact the hospital for assistance. If you have any questions for the [facility] physicians or need to reconsult for clinical or diagnostic changes please contact us via [facility] at .
--- NOTE | 2025-01-18 13:03 | PC.NURSE ---
Pt. taken to RR via wheel chair, urine collected via hat. Pt. tolerated well.
--- NOTE | 2025-01-18 13:05 | PC.NURSE ---
Pt. resting laying in bed in room 2, pt.'s is bedside and pt.'s daughter.
[2025-01-18 13:16] LABS: Collection Type, Urine Clean Catch
[2025-01-18 13:31] LABS: Bilirubin,Urine Negative (Negative); Blood,Urine Negative (Negative); Clarity,Urine Clear (Clear/Hazy); Color,Urine Lt-Yellow (Lt Yel-Yel); Glucose, Urine Negative (Negative); Ketones,Urine 1+ (Negative); Leukocyte Esterase,Urine Positive (Negative); Nitrite,Urine Negative (Negative); Protein,Urine Negative (Neg - Trace); RBC,Urine 1 /hpf (0-3); Squamous Epithelial Cell,Urine 14 /hpf (0-5); Urobilinogen,Urine Negative mg/dL (0.0-1.0); WBC,Urine 4 /hpf (0-5)
--- NOTE | 2025-01-18 13:35 | PCS.ST ---
swallow eval completed. Recommend D2 and thin liquids d/t missing dentition. See report for additional details
--- NOTE | 2025-01-18 14:14 | EKG_ITS ---
[facility] (Formerly [facility])[3] Test Date: 2025-01-18 Pat Name: CHASIDY GUERRERO Department: Room: [facility] Gender: Female Eyeglass Fitter: HEIKE : 1960 Requested By: Herve Dobson Order Number: [id number] Reading MD: Herve Dobson Measurements Intervals [place] Rate: 58 P: 52 ID: [id number] QRS: 33 QRSD: 99 T: 51 QT: 483 QTc: 476 Interpretive Statements SINUS BRADYCARDIA PROLONGED QT INTERVAL Compared to ECG 01/18/2025 10:03:42 Sinus arrhythmia no longer present ST (T wave) deviation no longer present /store/S0/[id number]/[id number].pdf
[2025-01-18 15:31] LABS: Amphetamine/Methamp Scrn,U Negative (Negative); Barbiturate Screen,Urine Negative (Negative); Benzodiazepines Screen,Urine Negative (Negative); Benzoylecgonine Screen, Ur Negative (Negative); Fentanyl Screen,Urine Negative (Negative); Opiate Screen,Urine Negative (Negative); THC Screen,Urine Positive (Negative)
[2025-01-18] MEDS: ACETAMINOPHEN 325 MG TABLET 650 MG PO (16:35)
--- NOTE | 2025-01-18 16:52 | PC.NURSE ---
pt latonia 50 hr, Dr. Dobson notified, EKG ordered
[2025-01-18 16:53] LABS: Albumin, Serum 3.9 gm/dL (3.4-4.8); Anion Gap 10 (7-16); BUN/Creatinine Ratio 14 Ratio (12-20); Blood Urea Nitrogen 10 mg/dL (9-23); Calcium (Corrected) 9.1 mg/dL (8.5-10.1); Carbon Dioxide 34.5 mMol/L (20.0-31.0); Chloride 97 mMol/L (98-107); Creatinine (Component) 0.7 mg/dL (0.6-1.3); Estimated Creatinine Clearance 64.7 mL/min (>60); Glucose 87 mg/dL (74-106); Osmolality,Calculated 279 (275-295); Phosphorous 3.6 mg/dL (2.4-5.1); Sodium 141 mMol/L (136-145); Troponin I 0.041 ng/mL (0.0-0.045); eGFR > 60 See Note
[2025-01-18] MEDS: POTASSIUM CHLORIDE 10% 20 MEQ/15 ML UDC 40 MEQ PO ×2 (17:17→20:12)
[2025-01-18] MEDS: SCOPOLAMINE 1 MG TDSY TOP (18:32)
[2025-01-18] MEDS: POTASSIUM CHL 10 mEq IVPB 10 MEQ/100 ML BAG 100 MEQ IV (18:33)
--- NOTE | 2025-01-18 19:51 | PC.NURSE ---
pt is crying, screaming and c/o pain to IV site with Potassium running, family at bedside. ice pack applied on site, paused IV per pt and family request . Melissa Swann notified and new order given.
[2025-01-18 20:29] LABS: Folate 14.87 ng/mL (>5.38); Vitamin B12 280 pg/mL (211-911)
[2025-01-18] MEDS: SERTRALINE HCL 25 MG TABLET 50 MG PO (20:58)
[2025-01-18 22:51] LABS: Anion Gap 6 (7-16); BUN/Creatinine Ratio 13 Ratio (12-20); Blood Urea Nitrogen 10 mg/dL (9-23); Calcium 8.8 mg/dL (8.3-10.6); Calcium (Corrected) 8.8 mg/dL (8.5-10.1); Carbon Dioxide 32.7 mMol/L (20.0-31.0); Chloride 103 mMol/L (98-107); Creatinine (Component) 0.8 mg/dL (0.6-1.3); Estimated Creatinine Clearance 56.6 mL/min (>60); Glucose 90 mg/dL (74-106); Osmolality,Calculated 282 (275-295); Potassium 2.8 mMol/L (3.4-5.1); Sodium 142 mMol/L (136-145); eGFR > 60 See Note
--- NOTE | 2025-01-18 23:05 | PC.NURSE ---
RECEIVED CALL FROM PT'S POC GER, UPDATE GIVEN. RENAL PANEL RESULT STILL PENDING.
[2025-01-19] VITALS: BP 141/73; PULSE 60; RESP 16; TEMP 36.4; O2SAT 95
[2025-01-19 00:03] LABS: Phosphorous 2.5 mg/dL (2.4-5.1)
[2025-01-19] MEDS: POTASSIUM CHLORIDE 20 mEq TABCR 40 MEQ PO ×2 (00:04→09:31)
[2025-01-19] MEDS: ACETAMINOPHEN 325 MG TABLET 650 MG PO ×3 (00:17→19:28)
--- NOTE | 2025-01-19 01:29 | PD.VPROG1 ---
Telemedicine visit statement This visit was conducted with the use of phone was obtained on 01/18/25 Documentation for date of: 01/18/25 Subjective Subjective Interval history: patient is in telemetry. She has no more numbness but and the feeling tired. She did have pain in the lower extremities resting now after taking Tylenol few hours ago. Virtual exam Vital Signs Temp Pulse Resp BP Pulse Ox O2 Del Method 97.5 F 60 16 141/73 H 95 Room Air 01/19/25 00:00 01/19/25 00:00 01/19/25 00:00 01/19/25 00:00 01/19/25 00:00 01/19/25 00:00 Objective Labs 01/18/25 09:58 01/18/25 22:17 Labs: Laboratory Results - last 24 hr 01/18/25 01/18/25 01/18/25 09:58 12:58 15:47 WBC 12.3 H RBC 5.07 Hgb 12.2 Hct 38.3 MCV 76 L MCH 24.1 L MCHC 31.9 RDW Std Deviation 41.2 Plt Count 462 H Neut % (Auto) 69 Lymph % (Auto) 19 [place] % (Auto) 10 Eos % (Auto) 1 Baso % (Auto) 1 Neut # (Auto) 8.4 H Lymph # (Auto) 2.3 [place] # (Auto) 1.3 H Eos # (Auto) 0.1 Baso # (Auto) 0.1 Immature Gran # (Auto) 0.04 H Absolute Nucleated RBC 0.00 Immature Gran % 0 Nucleated RBC % 0 Sodium 141 141 Potassium 2.4 L* 2.0 L* Chloride 96 L 97 L Carbon Dioxide 35.5 H 34.5 H Anion Gap 10 10 BUN 12 10 Creatinine 0.9 0.7 Estim Creat Clear Calc 50.3 L 64.7 eGFR > 60 > 60 BUN/Creatinine Ratio 13 14 Glucose 104 87 Calculated Osmolality 280 279 Calcium 10.3 9.0 Corrected Calcium 10.3 H 9.1 Phosphorus 1.6 L 3.6 Magnesium 2.3 Iron 61 TIBC 491 H Iron Saturation 12 L Unsat Iron Binding 430 H Total Bilirubin 0.9 AST 25 ALT 14 Alkaline Phosphatase 93 Troponin I 0.048 H* 0.041 Total Protein 7.4 Albumin 4.7 3.9 D Globulin 2.7 Albumin/Globulin Ratio 1.7 Vitamin B12 280 Folate 14.87 Ur Collection Type Clean Catch Urine Color Lt-Yellow Urine Clarity Clear Urine pH 8.0 H Ur Specific [place] 1.010 Urine Protein Negative Urine Glucose (UA) Negative Urine Ketones 1+ A Urine Blood Negative Urine Nitrite Negative Urine Bilirubin Negative Urine Urobilinogen (Auto) Negative Ur Leukocyte Esterase Positive Urine RBC 1 Urine WBC 4 Ur Squamous Epith Cells 14 H Urine Bacteria None Urine Opiates Screen Negative Urine Fentanyl Screen Negative Ur Barbiturates Screen Negative U Amphetamin/Meth Scrn Negative U Benzodiazepines Scrn Negative U Cocaine Metab Screen Negative U Marijuana (THC) Screen Positive A 01/18/25 22:17 WBC RBC Hgb Hct MCV MCH MCHC RDW Std Deviation Plt Count Neut % (Auto) Lymph % (Auto) [place] % (Auto) Eos % (Auto) Baso % (Auto) Neut # (Auto) Lymph # (Auto) [place] # (Auto) Eos # (Auto) Baso # (Auto) Immature Gran # (Auto) Absolute Nucleated RBC Immature Gran % Nucleated RBC % Sodium 142 Potassium 2.8 L D Chloride 103 Carbon Dioxide 32.7 H Anion Gap 6 L BUN 10 Creatinine 0.8 Estim Creat Clear Calc 56.6 L eGFR > 60 BUN/Creatinine Ratio 13 Glucose 90 Calculated Osmolality 282 Calcium 8.8 Corrected Calcium 8.8 Phosphorus 2.5 Magnesium Iron TIBC Iron Saturation Unsat Iron Binding Total Bilirubin AST ALT Alkaline Phosphatase Troponin I Total Protein Albumin 4.0 Globulin Albumin/Globulin Ratio Vitamin B12 Folate Ur Collection Type Urine Color Urine Clarity Urine pH Ur Specific [place] Urine Protein Urine Glucose (UA) Urine Ketones Urine Blood Urine Nitrite Urine Bilirubin Urine Urobilinogen (Auto) Ur Leukocyte Esterase Urine RBC Urine WBC Ur Squamous Epith Cells Urine Bacteria Urine Opiates Screen Urine Fentanyl Screen Ur Barbiturates Screen U Amphetamin/Meth Scrn U Benzodiazepines Scrn U Cocaine Metab Screen U Marijuana (THC) Screen Assessment & Plan Problem List (1) Generalized weakness: Status: Acute Assessment and plan: overall it is improving hope to see more improvement as the potassium comes up. follow-up with MRI (2) Back pain: Status: Chronic Assessment and plan: acute on chronic with pain at the site of the fall in the rib cage, got topical lidocaine patch and Tylenol as needed. we could resume gabapentin if she has been taking as an outpatient for pain control (3) Hypokalemia: Status: Acute Assessment and plan: potassium is coming up from 2-2.8 with p.o. potassium
[2025-01-19 04:00] VITALS: BP 126/73; PULSE 53; PULSE 55; RESP 19; TEMP 36.1; O2SAT 96
[2025-01-19 05:52] VITALS: BMI 24.8
[2025-01-19 06:00] LABS: Basophils # (Auto) 0.1 Thou/mm3 (0.0-0.2); Basophils % (Auto) 1 % (0-2.5); Eosinophils # (Auto) 0.2 Thou/mm3 (0.0-0.5); Eosinophils % (Auto) 3 % (0-10); Hematocrit 33.3 % (36.0-46.0); Hemoglobin 10.5 g/dL (12.0-16.0); Immature Granulocytes % (Auto) 0 % (0-0); Immature Granulocytes Auto 0.02 Thou/mm3 (0.00-0.00); Lymphocytes # (Auto) 2.7 Thou/mm3 (1.0-4.8); Lymphocytes % (Auto) 40 % (10-50); Mean Corpuscular HGB Conc 31.5 g/dl (31.0-37.0); Mean Corpuscular Hemoglobin 24.4 pg (25.0-35.0); Mean Corpuscular Volume 77 fL (80-100); Monocytes # (Auto) 0.8 Thou/mm3 (0.0-0.8); Monocytes % (Auto) 12 % (0-12); Neutrophils # (Auto) 2.9 Thou/mm3 (1.8-7.7); Neutrophils % (Auto) 43 % (37-80); Nucleated Red Blood Cell % 0 /100 WBC (0); Platelet Count 349 Thou/mm3 (140-440); Red Blood Count 4.31 Miln/mm3 (4.00-5.20); White Blood Count 6.8 Thou/mm3 (3.6-11.0)
[2025-01-19 06:10] LABS: Glucose Estimated Average 114 mg/dL (80-131); Hemoglobin A1C 5.6 % Hgb (4.8-6.0)
[2025-01-19 06:46] LABS: Alanine Aminotransferase 11 U/L (10-49); Albumin, Serum 3.8 gm/dL (3.4-4.8); Albumin/Globulin Ratio 1.8 (1.2-2.2); Alkaline Phosphatase 67 U/L (46-116); Anion Gap 5 (7-16); Aspartate Amino Transferase 20 U/L (0-34); BUN/Creatinine Ratio 13 Ratio (12-20); Bilirubin,Total 0.5 mg/dL (0.3-1.2); Blood Urea Nitrogen 9 mg/dL (9-23); Calcium 8.9 mg/dL (8.3-10.6); Calcium (Corrected) 9.1 mg/dL (8.5-10.1); Carbon Dioxide 33.7 mMol/L (20.0-31.0); Chloride 104 mMol/L (98-107); Cholesterol 167 mg/dL (132-200); Creatinine (Component) 0.7 mg/dL (0.6-1.3); Estimated Creatinine Clearance 64.7 mL/min (>60); Free T4 (Free Thyroxine) 1.18 ng/dL (0.89-1.76); Globulin 2.1 gm/dL (2.3-3.5); Glucose 91 mg/dL (74-106); HDL Cholesterol 56 mg/dL (40-60); LDL Cholesterol,Calculated 91 mg/dL (0-130); Magnesium 2.3 mg/dL (1.6-2.6); Osmolality,Calculated 283 (275-295); Sodium 143 mMol/L (136-145); Thyroid Stimulating Hormone 1.83 uIU/mL (0.55-4.78); Total Protein 5.9 gm/dL (5.7-8.2); Triglycerides 101 mg/dL (30-150); eGFR > 60 See Note
[2025-01-19 08:00] VITALS: BP 131/61; PULSE 58; PULSE 62; RESP 24; TEMP 36.9; O2SAT 96
--- NOTE | 2025-01-19 09:21 | PC.SS ---
Anjelica Aguilar is 65-year-old female admitted to [facility] for Sever Hypokalemia. SS conducted bedside contact with the patient?s family to complete initial assessment and to discuss discharge planning.? Patients Reynold Aguilar [phone] confirmed demographic information. He identifies their daughter Tamiko Chaney [phone] as the pts surrogate decision maker. Patient resides at home with her . Pt is able to complete all ADL?s independently, no need for any source of DME. Pts PCP is Dr. Shaffer and her pharmacy of choice is [facility] on [address]. DC options discussed they wish for pt to return home. Pts will provide transportation upon DC. No further intervention required at this time, healthcare social worker would be available to address any further concerns. DC Plan: Home Contact: Tamiko Chaney [phone] PCP: Deena
[2025-01-19] MEDS: CYANOCOBALAMIN INJ 1,000 mCg/ML VIAL 1000 MCG IM (09:32)
[2025-01-19] MEDS: ENOXAPARIN SOD INJ 40 MG/0.4 ML SYRINGE SC (09:32)
--- NOTE | 2025-01-19 11:07 | ESPR_ITS ---
<Statement entered by Murray Cope MD - 01/19/25 14:33> Patient was seen and examined at the bedside. Patient's symptoms of right arm numbness has improved since yesterday. Patient was admitted yesterday for workup of stroke which was ruled out. Currently getting managed for TIA versus seizures versus hypokalemic muscle paralysis. Patient came with low potassium which was corrected with IV and p.o. potassium. Currently potassium was at 3.0. Patient was given 40 mEq potassium p.o. x 1. We repeated the potassium at 2:00 which came back 3.3. 20 mEq potassium was given x 1. Patient had a drop in hemoglobin to 10.5 therefore we ordered an FOBT. WBCs have been downtrending. MRI brain showed microvascular white matter changes and no infarction. Will follow-up on echo with bubble study and EEG. Started aspirin and statin for prevention of future stroke. Patient was given IM B12 x 1 due to B12 deficiency around 280. Will continue with current management. All labs and orders were reviewed. I saw and examined the patient, and I agree with current management stated by Dr Bronson MD,PGY1. Plan of care was discussed with the attending physician and resident physician. Disclaimer: Despite multiple revisions, due to the dictation software being used, the document bellow may not be free of grammatical errors including phonetic/typographic errors. However, this does not deter from our commitment to providing health care in the patient's best interest in mind. Dr. Víctor MD, PGY 2 Documentation for date of: 01/19/25 Subjective Subjective Interval history: No acute overnight events reported. Patient seen and examined at bedside this morning. Patient is scheduled to get an MRI patient's family is at bedside reports complete resolution of her symptoms including weakness in her lower extremities and confusion. Vitals are stable hemoglobin this morning dropped to 10.5 per family patient has never gotten a colonoscopy in the past so we will order FOBT is previously patient refused colonoscopy workup. Patient denies any blood in her stool. Potassium is slowly improving this morning potassium is 3.0 which is repleted appropriately when we will recheck later in the afternoon. Patient has no acute complaints. Exam Vital Signs Temp Pulse Resp BP Pulse Ox O2 Del Method 98.5 F 58 L 24 H 131/61 H 96 Room Air 01/19/25 08:00 01/19/25 08:00 01/19/25 08:00 01/19/25 08:00 01/19/25 08:00 01/19/25 08:00 Narrative Exam GENERAL: A&Ox3 . Awake, Not in acute distress NEURO: no focal neurological deficits HEENT: Atraumatic, Normocephalic. mucous membranes moist. Eyes open, symmetrical, & clear HEART: Normal Heart Sounds LUNGS: Clear to auscultation with no wheezing or crackles. ABDOMEN: soft, non-distended, non-tender, bowel sounds heard, no guarding or rebound tenderness SKIN: No Rash or ecchymoses EXTREMITIES: No edema, tenderness, able to move all 4 extremities, pedal pulses palpated Objective Labs 01/19/25 05:45 01/19/25 14:05 Labs: Laboratory Results - last 24 hr 01/18/25 01/18/25 01/18/25 09:58 12:58 15:47 WBC RBC Hgb Hct MCV MCH MCHC RDW Std Deviation Plt Count Neut % (Auto) Lymph % (Auto) [place] % (Auto) Eos % (Auto) Baso % (Auto) Neut # (Auto) Lymph # (Auto) [place] # (Auto) Eos # (Auto) Baso # (Auto) Immature Gran # (Auto) Absolute Nucleated RBC Immature Gran % Nucleated RBC % Sodium 141 Potassium 2.0 L* Chloride 97 L Carbon Dioxide 34.5 H Anion Gap 10 BUN 10 Creatinine 0.7 Estim Creat Clear Calc 64.7 eGFR > 60 BUN/Creatinine Ratio [address] Glu mg/dL Hemoglobin A1c Calculated Osmolality 279 Calcium 9.0 Corrected Calcium 9.1 Phosphorus 3.6 Magnesium Iron 61 TIBC 491 H Iron Saturation 12 L Unsat Iron Binding 430 H Total Bilirubin AST ALT Alkaline Phosphatase Troponin I 0.041 Total Protein Albumin 3.9 D Globulin Albumin/Globulin Ratio Triglycerides Cholesterol LDL Cholesterol, Calc HDL Cholesterol Cholesterol/HDL Ratio Vitamin B12 280 Folate 14.87 TSH Free T4 Ur Collection Type Clean Catch Urine Color Lt-Yellow Urine Clarity Clear Urine pH 8.0 H Ur Specific [place] 1.010 Urine Protein Negative Urine Glucose (UA) Negative Urine Ketones 1+ A Urine Blood Negative Urine Nitrite Negative Urine Bilirubin Negative Urine Urobilinogen (Auto) Negative Ur Leukocyte Esterase Positive Urine RBC 1 Urine WBC 4 Ur Squamous Epith Cells 14 H Urine Bacteria None Urine Opiates Screen Negative Urine Fentanyl Screen Negative Ur Barbiturates Screen Negative U Amphetamin/Meth Scrn Negative U Benzodiazepines Scrn Negative U Cocaine Metab Screen Negative U Marijuana (THC) Screen Positive A 01/18/25 01/19/25 22:17 05:45 WBC 6.8 D RBC 4.31 Hgb 10.5 L Hct 33.3 L MCV 77 L MCH 24.4 L MCHC 31.5 RDW Std Deviation 43.0 Plt Count 349 D Neut % (Auto) 43 Lymph % (Auto) 40 [place] % (Auto) 12 Eos % (Auto) 3 Baso % (Auto) 1 Neut # (Auto) 2.9 Lymph # (Auto) 2.7 [place] # (Auto) 0.8 Eos # (Auto) 0.2 Baso # (Auto) 0.1 Immature Gran # (Auto) 0.02 H Absolute Nucleated RBC 0.00 Immature Gran % 0 Nucleated RBC % 0 Sodium 142 143 Potassium 2.8 L D 3.0 L Chloride 103 104 Carbon Dioxide 32.7 H 33.7 H Anion Gap 6 L 5 L BUN 10 9 Creatinine 0.8 0.7 Estim Creat Clear Calc 56.6 L 64.7 eGFR > 60 > 60 BUN/Creatinine Ratio 13 13 Glucose [address] Glu mg/dL 114 Hemoglobin A1c 5.6 Calculated Osmolality 282 283 Calcium 8.8 8.9 Corrected Calcium 8.8 9.1 Phosphorus 2.5 Magnesium 2.3 Iron TIBC Iron Saturation Unsat Iron Binding Total Bilirubin 0.5 AST 20 ALT 11 Alkaline Phosphatase 67 D Troponin I Total Protein 5.9 Albumin 4.0 3.8 Globulin 2.1 L Albumin/Globulin Ratio 1.8 Triglycerides 101 Cholesterol 167 LDL Cholesterol, Calc 91 HDL Cholesterol 56 Cholesterol/HDL Ratio 3.0 L Vitamin B12 Folate TSH 1.83 Free T4 1.18 Ur Collection Type Urine Color Urine Clarity Urine pH Ur Specific [place] Urine Protein Urine Glucose (UA) Urine Ketones Urine Blood Urine Nitrite Urine Bilirubin Urine Urobilinogen (Auto) Ur Leukocyte Esterase Urine RBC Urine WBC Ur Squamous Epith Cells Urine Bacteria Urine Opiates Screen Urine Fentanyl Screen Ur Barbiturates Screen U Amphetamin/Meth Scrn U Benzodiazepines Scrn U Cocaine Metab Screen U Marijuana (THC) Screen Quality Measures Quality Measures none Advance care planning discussed with:: patient Assessment & Plan Assessment Current Active Medications: Generic Name Dose Route Start Last Admin Trade Name Freq PRN Reason Stop Dose Admin Acetaminophen 650 mg 01/18/25 14:13 01/19/25 09:31 Acetaminophen 325 Mg Tablet PO 02/17/25 14:12 650 mg Q6HR PRN Administration Fever >101 and mild pain Aspirin 81 mg 01/19/25 11:15 Aspirin Ec 81 Mg Tabec PO 02/18/25 11:14 QDAY IKE Atorvastatin Calcium 40 mg 01/19/25 21:00 Atorvastatin Calcium 20 Mg Tablet PO 02/18/25 20:59 HS IKE Dextrose 25 ml 01/18/25 12:35 Dextrose 50%-Water Inj 50 Ml Syringe IV 02/17/25 12:34 Q15MIN PRN BG 50-70 responsive npo pt Dextrose 50 ml 01/18/25 12:35 Dextrose 50%-Water Inj 50 Ml Syringe IV 02/17/25 12:34 Q15MIN PRN BG <50 OR BG <70 & pt unresponsive Enoxaparin Sodium 40 mg 01/19/25 09:00 01/19/25 09:32 Enoxaparin Sod Inj 40 Mg/0.4 Ml Syringe SC 02/02/25 08:59 40 mg QDAY IKE Administration Sertraline HCl 50 mg 01/18/25 21:00 01/18/25 20:58 Sertraline Hcl 25 Mg Tablet PO 02/17/25 20:59 50 mg HS IKE Administration Plan Ms. Aguilar is a 65 year old female with past medical history significant for hypertension, depression and degenerative bone disease presented to the ED complaining of generalized weakness and confusion. #Acute encephalopathy- resolved #Acute CVA - ruled out #TIA -LKW: Unknown ( at bedside says pt complained of weakness last night 01/17) -NIHSS Score: 1 -pre morbid rank: scale0 Points = No symptoms at all -Tele neuro consulted, recommendations appreciated -Head CT: Negative for acute hemorrhage, mass effect or midline shift -Head CTA: No significant neck arterial stenoses, No cerebral large vessel arterial occlusions or thrombus -MRI with MRA: Negative for acute hemorrhage mass effect or midline shift, No acute infarct, Prominent chronic microvascular white matter change, Moderate diffuse cerebral arterial irregularity -ABCD2 score 2- low risk for stroke Plan: - Neuro checks q6HR - Keep head of bed elevated at 30 degrees -?limit sedating meds - Euglycemia and Avoid Hyperthermia (PRN Acetaminophen) -?allow permissive HTN for first 24 hours than slowly and gradually goal normotension thereafter -?brcpy-zlakdvlzn-dwgygjxtud workup (especially with U/A, UDS, CXR) -?echo with bubble study ordered - lipid panel, HbA1c, TSH with free T4- all within normal limits - Referral to PT/OT/speech therapy -Tele neuro recommended: consider routine EEG to look for encephalopathic vs epileptiform patterns- EEG ordered -In house neurologist Dr. Fontana consulted, appreciate recommendations -Added Aspirin and statin -(however Pt refuse to take aspirin as she states she bleed easily with aspirin) #Sinus Bradycardia #Hypokalemia in the setting of #Metabolic alkalosis #Hypophosphatemia -On admission potassium 2.4 -will monitor potassium closely and repleated as needed -On admission phosphorous 1.6, likely secondary to poor oral intake #elevated troponin -likely demand ischemia, Pt denies chest pain -On admission troponin 0.048 ->0.041 -EKG showed sinus bradycardia without acute ST or T waves changes #Acute Anemia #Hx. of gastric bypass surgery DDx: nutritional deficiency, malabsorption, GI bleed -CBC shows MCV 76, MCHC 24.1, hemaglobin is 12.3 -Iron panel: Iron 61, TIBC 491, Iron saturation 12%, unsat Iron binding 430 -Pt has a history of gastric bypass surgery with a revision -B12 280 and folate 14.8 -B12 IM given x1 -FOBT ordered #Depression -Pt's home zoloft is resumed #substance abuse -Pt endorses to smoking marijuana daily -Urine tox is positive for [place] Health Maintenance Disposition: Telemetry- acute CVA ruled out, pending echo adn MRI DVT Prophylaxis: enoxaparin 40mg Qdaily Lines: Peripheral lines Code status: Full Assessment and plan discussed with my senior resident Dr. Cope & attending physician Dr. Ara Dobson (PGY-1)- Internal medicine resident
--- NOTE | 2025-01-19 11:15 | PC.PT ---
PT eval only. Patient is at her PLOF. Patient is safe to ambulate in the halls and to the bathroom with no DME and no staff assist. RN made aware.
[2025-01-19 12:00] VITALS: BP 124/87; PULSE 62; PULSE 63; RESP 24; TEMP 36.3; O2SAT 98
--- NOTE | 2025-01-19 12:03 | ECHO_ITS ---
Transthoracic Echo Report Ht (in): 61 Wt (lb): 131 Exam Location: [facility] Status: Inpatient Document Processing Specialist: PEREZ Harish^^^^ Indications: Procedure Performed: BP: 127 / 76 HR: 67 Technical Quality: Fair MEASUREMENTS (Male / Female) Normal Values 2D ECHO LV Diastolic Diameter PLAX 2.7 cm 4.2 - 5.9 / 3.9 - 5.3 cm LV Systolic Diameter PLAX 1.7 cm IVS Diastolic Thickness 1.2 cm 0.6 - 1.0 / 0.6 - 0.9 cm LVPW Diastolic Thickness 1.1 cm 0.6 - 1.0 / 0.6 - 0.9 cm LV Relative Wall Thickness 0.8 LVOT Diameter 1.7 cm Aortic Root Diameter 3.2 cm LA Systolic Diameter LX 3.3 cm 3.0 - 4.0 / 2.7 - 3.8 cm LV Ejection Fraction MOD BP 70.4 % >= 55 % LV Cardiac Index MOD BP 2262.0 cm?/min?m? LV Ejection Fraction MOD 4C 74.2 % LV Cardiac Index MOD 4C 2474.1 cm?/min?m? LV Ejection Fraction 4C AL 75.5 % LV Cardiac Index 4C AL 2664.7 cm?/min?m? LV Ejection Fraction MOD 2C 63.6 % LV Cardiac Index MOD 2C 1783.8 cm?/min?m? LV Ejection Fraction 2C AL 64.8 % LV Cardiac Index 2C AL 1827.1 cm?/min?m? LA Volume Index 25.0 cm?/m? 16 - 28 cm?/m? Ascending Aorta Diameter 3.2 cm DOPPLER AV Peak Velocity 207.7 cm/s AV Peak Gradient 17.3 mmHg AV Mean Gradient 10.5 mmHg AV Velocity Time Integral 43.9 cm AI Peak Velocity 355.3 cm/s AI Peak Gradient 50.5 mmHg AI Pressure Half Time 745.3 ms LVOT Peak Velocity 167.0 cm/s LVOT Peak Gradient 11.2 mmHg LVOT Velocity Time Integral 38.4 cm LVOT Cardiac Index 3624.2 cm?/min?m? AV Area Cont Eq vti 2.0 cm? AV Area Cont Eq pk 1.8 cm? MV Area PHT 1.9 cm? Mitral E Point Velocity 94.9 cm/s Mitral A Point Velocity 111.0 cm/s Mitral E to A Ratio 0.9 LV E' Lateral Velocity 8.8 cm/s Mitral E to LV E' Lateral Ratio 10.8 LV E' Septal Velocity 8.1 cm/s Mitral E to LV E' Septal Ratio 11.8 TR Peak Velocity 228.3 cm/s TR Peak Gradient 20.9 mmHg PV Peak Velocity 118.0 cm/s PV Peak Gradient 5.6 mmHg RVOT Peak Velocity 68.7 cm/s FINDINGS Left Ventricle The left ventricular wall thickness is mildly increased. The left ventricular ejection fraction is normal, estimated at 55-60%. There is grade I diastolic dysfunction of the left ventricle (impaired relaxation pattern). Right Ventricle The right ventricle is normal in size and systolic function. The estimated right ventricular systolic pressure, 21 mmHg. Left Atrium The left atrium is normal by two-dimensional, color flow and Doppler imaging with no structural abnormalities, no thrombus formation present. Right Atrium The right atrium is normal by two-dimensional imaging, color flow and Doppler imaging with no structural abnormalities, no thrombus formation present. Atrial Septum The interatrial septum is normal to color flow Doppler and agitated saline imaging. Aorta The aorta is normal by two-dimensional, color flow and Doppler interrogation. Mitral Valve Trace to mild mitral regurgitation. Mild mitral annular calcification. Aortic Valve Mild aortic valve stenosis, mean gradient 10.5 mmHg, CONCEPCION 2 cm?. Mild aortic valve regurgitation. Tricuspid Valve There is mild tricuspid valve regurgitation. . Pulmonic Valve Trivial pulmonic valve regurgitation. Vessels The pulmonary artery appears normal. The inferior vena cava pulmonary and hepatic veins appear normal. Pericardium The pericardium is normal by two-dimensional imaging. There is no significant pericardial effusion. CONCLUSIONS indication: bubble study Normal left ventricular size and function. LVEF is 55-60%. RV appears normal with RVSP 21 mmHg. IAS is is normal to color flow Doppler and agitated saline imaging. Negative bubble study MAC with mild MR Aortic Valve sclerosis with mild stenosis Mild TR Xochitl Landon (Electronically Signed) Final Date: 20 January 2025 12:54
--- NOTE | 2025-01-19 12:03 | XR_ITS ---
Examinations: MRI Brain without intravenous contrast. MRA brain without intravenous contrast. MRA carotids without intravenous contrast 3-D vascular reconstructions Date and time of exam: January 19, 2025 0833 hours Indication: Stroke alert yesterday, onset focal neurologic deficit confusion, difficulty speaking Technique: Multiple axial and sagittal images of the brain have been obtained MRA brain carotid images without contrast obtained, including 3-D postprocessing, vascular maximum intensity projection images Findings: [place] is not enlarged. The optic chiasm and infundibular stalk are not remarkable. Prepontine and interpeduncular cisterns are not enlarged. No localized enlargement of the medulla or jocelyne. Fourth ventricle and cerebellar tonsils normal in position. Subacute hemorrhage is not seen. Fourth ventricle is midline. Mass in the cerebellopontine angle region is not evident. 7th and 8th nerve complexes exhibits symmetry. Globes are symmetrical with no retro-orbital mass. Increased white matter signal prominent Diffusion-weighted images demonstrate no focus of restricted diffusion Mass-effect upon the ventricular system is not identified. MRA carotid images degraded by patient motion. MRA brain images moderate cerebral diffuse irregularity Impression: Negative for acute hemorrhage mass effect or midline shift No acute infarct Prominent chronic microvascular white matter change Moderate diffuse cerebral arterial irregularity
--- NOTE | 2025-01-19 13:53 | RESP.EEG ---
EEG COMPLETED AND READY FOR REVIEW
[2025-01-19 14:22] LABS: Potassium 3.3 mMol/L (3.4-5.1)
[2025-01-19] MEDS: POTASSIUM CHLORIDE 20 mEq TABCR PO (15:11)
[2025-01-19 16:00] VITALS: BP 155/76; PULSE 47; PULSE 58; RESP 25; TEMP 36.6; O2SAT 97
[2025-01-19] MEDS: SERTRALINE HCL 25 MG TABLET 50 MG PO (17:35)
[2025-01-19 20:00] VITALS: BP 122/63; PULSE 54; PULSE 58; RESP 16; TEMP 36.2; O2SAT 98
[2025-01-19] MEDS: ATORVASTATIN CALCIUM 20 MG TABLET 40 MG PO (20:36)
--- NOTE | 2025-01-19 23:48 | PD.NEUROPROG ---
Documentation for date of: 01/19/25 Subjective Subjective Interval history: patient was sen in telemetry today. No new symptoms reported. No feeling of weaknes or tiredness but continues to have pain in the lower leg extremities. Potassium has gone up from Admision. Exam - Neurology Vital Signs Temp Pulse Resp BP Pulse Ox O2 Del Method 97.2 F 58 L 16 122/63 98 Room Air 01/19/25 20:00 01/19/25 20:00 01/19/25 20:00 01/19/25 20:00 01/19/25 20:00 01/19/25 20:00 Narrative Exam GENERAL APPEARANCE: Well hydrated, well-nourished in no acute distress. HEENT: Normocephalic, atraumatic, extraocular movements intact. Pupils: Equal reacting to light and accommodation NECK: Supple, no JVD or bruits. CARDIOVASULAR: Heart: S1, S2 heard, regular without S3-S4 or murmur no rubs or gallops. LUNGS/CHEST: Clear to auscultation bilaterally. No rails, rhonchi, or wheezing. Normal inspection. ABDOMEN: Soft, nontender, with normal bowel sounds. No pulsatile masses. No rebound, rigidity, or guarding. Normal inspection and palpation. EXTREMITIES: Normal inspection and palpation. No edema, clubbing or cyanosis. SKIN: Warm and dry without rashes. Normal inspection. MUSCULOSKELETAL: No cervical, thoracic, lumbar or midline bony tenderness. Normal inspection. NEURO: Alert, awake and oriented x3. Cranial nerves: II through XII grossly intact. Speech and language: Normal with no dysarthria or dysphasia. Motor system: Tone and bulk: Normal: Strength: 5 out of 5 in all 4 extremities; No pronator drift noted. Deep tendon reflexes: 2+ bilaterally symmetrical. Plantar reflex: Downgoing bilaterally. Sensory system: Intact to all modalities of sensation bilaterally. Coordination: Intact to [id number]-zaow-[id number] and oiym-riip-nfns test bilaterally. No ataxia, no dysmetria, or dysdiadochokinesia noted. No intention tremors noted. Gait: Normal. Toe, heel, tandem walk all are normal. Romberg: Negative. No signs of meningeal irritation noted. PSYCHIATRIC: Normal mood and affect. Objective Labs 01/20/25 05:41 01/20/25 05:41 Labs: Laboratory Results - last 24 hr 01/18/25 01/19/25 01/19/25 22:17 05:45 14:05 WBC 6.8 D RBC 4.31 Hgb 10.5 L Hct 33.3 L MCV 77 L MCH 24.4 L MCHC 31.5 RDW Std Deviation 43.0 Plt Count 349 D Neut % (Auto) 43 Lymph % (Auto) 40 [place] % (Auto) 12 Eos % (Auto) 3 Baso % (Auto) 1 Neut # (Auto) 2.9 Lymph # (Auto) 2.7 [place] # (Auto) 0.8 Eos # (Auto) 0.2 Baso # (Auto) 0.1 Immature Gran # (Auto) 0.02 H Absolute Nucleated RBC 0.00 Immature Gran % 0 Nucleated RBC % 0 Sodium 143 Potassium 3.0 L 3.3 L Chloride 104 Carbon Dioxide 33.7 H Anion Gap 5 L BUN 9 Creatinine 0.7 Estim Creat Clear Calc 64.7 eGFR > 60 BUN/Creatinine Ratio [address] Glu mg/dL 114 Hemoglobin A1c 5.6 Calculated Osmolality 283 Calcium 8.9 Corrected Calcium 9.1 Phosphorus 2.5 Magnesium 2.3 Total Bilirubin 0.5 AST 20 ALT 11 Alkaline Phosphatase 67 D Total Protein 5.9 Albumin 3.8 Globulin 2.1 L Albumin/Globulin Ratio 1.8 Triglycerides 101 Cholesterol 167 LDL Cholesterol, Calc 91 HDL Cholesterol 56 Cholesterol/HDL Ratio 3.0 L TSH 1.83 Free T4 1.18 Assessment & Plan Assessment and plan (1) Generalized weakness: Status: Resolved (2) Back pain: Status: Chronic Assessment and plan: Advised her to take gabapentin 100 mg twice a day. As needed intake of gabapentin does not work (3) Hypokalemia: Status: Acute Assessment and plan: Improving with potassium supplementation
[2025-01-20] VITALS: BP 126/63; PULSE 56; PULSE 64; RESP 19; TEMP 36.2; O2SAT 99
[2025-01-20] MEDS: ACETAMINOPHEN 325 MG TABLET 650 MG PO ×2 (00:18→09:06)
[2025-01-20 03:54] VITALS: BP 121/57; PULSE 50; RESP 18; TEMP 36.6; O2SAT 98
[2025-01-20 04:00] VITALS: PULSE 50
[2025-01-20 05:36] VITALS: BMI 24.8
[2025-01-20 05:50] LABS: Basophils # (Auto) 0.1 Thou/mm3 (0.0-0.2); Basophils % (Auto) 1 % (0-2.5); Eosinophils # (Auto) 0.3 Thou/mm3 (0.0-0.5); Eosinophils % (Auto) 4 % (0-10); Hematocrit 31.9 % (36.0-46.0); Hemoglobin 10.2 g/dL (12.0-16.0); Immature Granulocytes % (Auto) 0 % (0-0); Immature Granulocytes Auto 0.02 Thou/mm3 (0.00-0.00); Lymphocytes # (Auto) 3.1 Thou/mm3 (1.0-4.8); Lymphocytes % (Auto) 41 % (10-50); Mean Corpuscular Hemoglobin 24.2 pg (25.0-35.0); Mean Corpuscular Volume 76 fL (80-100); Monocytes % (Auto) 13 % (0-12); Neutrophils % (Auto) 41 % (37-80); Nucleated Red Blood Cell % 0 /100 WBC (0); Platelet Count 354 Thou/mm3 (140-440); RDW Standard Deviation 42.5 fL (36.4-46.3); Red Blood Count 4.22 Miln/mm3 (4.00-5.20); White Blood Count 7.5 Thou/mm3 (3.6-11.0)
[2025-01-20 06:20] LABS: Alanine Aminotransferase 14 U/L (10-49); Albumin, Serum 3.7 gm/dL (3.4-4.8); Albumin/Globulin Ratio 2.1 (1.2-2.2); Alkaline Phosphatase 69 U/L (46-116); Anion Gap 3 (7-16); Aspartate Amino Transferase 26 U/L (0-34); BUN/Creatinine Ratio 16 Ratio (12-20); Bilirubin,Total 0.4 mg/dL (0.3-1.2); Blood Urea Nitrogen 13 mg/dL (9-23); Calcium 8.9 mg/dL (8.3-10.6); Calcium (Corrected) 9.1 mg/dL (8.5-10.1); Chloride 108 mMol/L (98-107); Creatinine (Component) 0.8 mg/dL (0.6-1.3); Estimated Creatinine Clearance 56.6 mL/min (>60); Globulin 1.8 gm/dL (2.3-3.5); Glucose 93 mg/dL (74-106); Magnesium 2.3 mg/dL (1.6-2.6); Osmolality,Calculated 283 (275-295); Potassium 3.7 mMol/L (3.4-5.1); Sodium 142 mMol/L (136-145); Total Protein 5.5 gm/dL (5.7-8.2); eGFR > 60 See Note
[2025-01-20 08:00] VITALS: BP 145/85; PULSE 61; PULSE 71; RESP 26; TEMP 36.2; O2SAT 99
[2025-01-20] MEDS: POTASSIUM CHLORIDE 20 mEq TABCR 40 MEQ PO (09:06)
[2025-01-20] MEDS: ENOXAPARIN SOD INJ 40 MG/0.4 ML SYRINGE SC (09:07)
[2025-01-20] MEDS: ASPIRIN EC 81 MG TABEC PO (09:14)
[2025-01-20 11:50] VITALS: BP 122/66; PULSE 69; RESP 28; TEMP 36.4; O2SAT 99
[2025-01-20 12:00] VITALS: PULSE 73
[2025-01-20] MEDS: LIDOCAINE 5% 1 PATCH TOP (12:15)
--- NOTE | 2025-01-20 14:03 | ESDS_ITS ---
Planned Discharge Date 01/20/25 DS: Providers Provider Date of admission: 01/19/25 14:09 Primary care physician: Julien Gallegos MD Admitting Provider: Jes Bullock MD Attending Provider on Admission: Jes Bullock MD Consults: 01/18/25 12:04 Consult to Neurology / Tele-Neurology Routine Comment: CVA rule out Consulting Provider: Rupert Fontana Referral Physical Therapy Routine Comment: Physician Instructions: Referral Speech Therapy Routine Comment: Attending Provider on DC: Jassi Fernández MD Discharging Provider: Jassi Fernández MD DS: Diagnosis Problem List Completed Was Problem List Reviewed/Reconciled?: Yes Hospital Course Hospital Course Hospital course: Ms. Aguilar is a 65-year-old female with past medical history significant for primary hypertension, depression and degenerative bone disease presented to the [facility] on 01/18/25 due to generalized weakness and confusion. Per family patient was altered confused and very somnolent and was not responding to them and had slurred speech. Upon arrival to the ED stroke alert was called. Patient was worked up for stroke which was all negative, including echocardiogram came back with negative bubble study. Patient had complete resolution of her symptoms within few hours of admission. Patient was diagnosed with TIA with ABCD2 score of 2 and was started on low-dose aspirin and statin. During hospitalization patient was also found to have hypokalemia with potassium of 2.4 during admission causing her severe bradycardia. Patient's potassium was appropriately repleted. Pt is also taking multiple medications that could be contributing to her symptoms. Pt is recommended to follow up with primary care to discuss the medications. Patient was also found to have elevated troponins during admission peaked at 0.048 and down trended to 0.041 patient denied any chest pain. Patient is cleared by neurologist, hemodynamically and clinically stable to be discharged home to self-care. Images CXR: No active disease, Moderate osteopenia with cervical disc spacers Head CT: Negative for acute hemorrhage, mass effect or midline shift Head CTA: No significant neck arterial stenoses, No cerebral large vessel arterial occlusions or thrombus EKG: Sinus bradycardia with prolonged QT interval MRI with MRA: Negative for acute hemorrhage mass effect or midline shift, No acute infarct, Prominent chronic microvascular white matter change, Moderate diffuse cerebral arterial irregularity Echo: Normal left ventricular size and function. LVEF is 55-60%. RV appears normal with RVSP 21 mmHg. IAS is is normal to color flow Doppler and agitated saline imaging. Negative bubble study MAC with mild MR Aortic Valve sclerosis with mild stenosis Mild TR Discharge Recommendations -Take medications as directed -Follow up with primary care physician within 1 week, to discuss HCTZ use vs. starting new antihypertensive medication due to hypokalemia -Promptly return to ED if symptoms reoccur or worsen Hospitalization Diagnosis #Acute encephalopathy- resolved #Bradycardia-resolved #Hypokalemia-resolved #Metabolic alkalosis -resolved #Hypophosphatemia-resolved #elevated troponin-downtrentended #Suspicion for microcytic anemia #Hx. of gastric bypass surgery #Depression #substance abuse Assessment and plan discussed with my attending physician Dr. Jesus Dobson (PGY-1)- Internal medicine resident Time Spent with Patient Time attestation: Total time spent providing and/or coordinating discharge services: Exam Vital Signs Temp Pulse Resp BP Pulse Ox O2 Del Method 97.5 F 73 28 H 122/66 99 Room Air 01/20/25 11:50 01/20/25 12:00 01/20/25 11:50 01/20/25 11:50 01/20/25 11:50 01/20/25 11:50 Narrative Exam GENERAL: A&Ox3 . Awake, Not in acute distress NEURO: no focal neurological deficits HEENT: Atraumatic, Normocephalic. mucous membranes moist. Eyes open, symmetrical, & clear HEART: Normal Heart Sounds LUNGS: Clear to auscultation with no wheezing or crackles. ABDOMEN: soft, non-distended, non-tender, bowel sounds heard, no guarding or rebound tenderness SKIN: No Rash or ecchymoses EXTREMITIES: No edema, tenderness, able to move all 4 extremities, pedal pulses palpated Discharge Plan Plan Patient Disposition: HOME (Self Care) Disposition Comment: RM [id number] Care Plan Goals: -Take medications as directed -Follow up with primary care physician within 1 week, to discuss HCTZ use vs. starting new antihypertensive medication due to hypokalemia -Promptly return to ED if symptoms reoccur or worsen Prescriptions/Referrals Prescriptions/Med Rec: New aspirin [Ecotrin Low Strength] 81 mg Tablet,Delayed Release (Dr/Ec) 81 mg PO QDAY 30 Days Qty: 30 0RF atorvastatin 40 mg tablet 40 mg PO HS 30 Days Qty: 30 0RF Continued hydroxyzine HCl 25 mg tablet 25 mg PO QDAY Patient Comments: TAKE 1 TABLET BY MOUTH EVERY DAY NEEDED FOR 90 DAYS sertraline 50 mg tablet 50 mg PO Q24H Patient Comments: TAKE 1 TABLET BY MOUTH EVERY DAY FOR 90 DAYS loratadine [Allergy Relief (loratadine)] 10 mg tablet 10 mg PO Q24H Patient Comments: TAKE 1 TABLET BY MOUTH ONCE A DAY FOR ALLERGY Held HCTZ/TRIAMTERENE (DYAZIDE 25/37.5) 1 CAP capsule See Rx Instructions .ROUTE .COMPLEX Qty: 30 Hold Instructions: Resume on 01/26/25. hold until your primary care physician follow up Rx Instructions: 37.5-25mg PO QD; Discontinued methylprednisolone [Medrol (Shahid)] 4 mg tablets,dose pack See Rx Instructions PO PER PKG DIR Qty: 21 0RF Rx Instructions: PO PER PKG DIR for 6 days gabapentin 300 mg capsule 300 mg PO QDAY ondansetron HCl 4 mg tablet 4 mg PO Q6H PRN (Reason: nausea and vomiting) Patient Comments: TAKE 1 TABLET ORALLY TWICE A DAY NEEDED NAUSEA 15 DAYS hydrocodone-acetaminophen 5-325 mg tablet 1 tab PO BID MDD 10 PRN (Reason: pain) Qty: 14 0RF Referrals: Julien Gallegos MD [Primary Care Provider] - Patient/Caregiver Discharge Instructions Discharge Activity: activity as tolerated Education Materials: ED Hypokalemia, ED Potassium-Rich Foods, ED TIA: Transient Ischemic Attack Print Language: Canadian Stand Alone Forms: [employer] Award Info., Patient Portal Info Letter Discharge Order Discharge Orders: Discharge (Routine); Ordered 01/20/25 Ordered By: Jassi Fernández Quality Discharge Quality Measures VTE prophylaxis
--- NOTE | 2025-01-21 06:07 | VVPN_ITS ---
Telemedicine visit statement This visit was conducted with the use of phone was obtained on 01/20/25 Documentation for date of: 01/20/25 Subjective Subjective Interval history: patient is in telemetry. She has no more numbness or weakness any longer. She does have chronic pain for which she is going to start gabapentin twice daily. Potassium is normalized Virtual exam Vital Signs Temp Pulse Resp BP Pulse Ox O2 Del Method 97.5 F 73 28 H 122/66 99 Room Air 01/20/25 11:50 01/20/25 12:00 01/20/25 11:50 01/20/25 11:50 01/20/25 11:50 01/20/25 11:50 Objective Labs 01/20/25 05:41 01/20/25 05:41 Labs: Laboratory Results - last 24 hr 01/20/25 05:41 WBC 7.5 RBC 4.22 Hgb 10.2 L Hct 31.9 L MCV 76 L MCH 24.2 L MCHC 32.0 RDW Std Deviation 42.5 Plt Count 354 Neut % (Auto) 41 Lymph % (Auto) 41 [place] % (Auto) 13 H Eos % (Auto) 4 Baso % (Auto) 1 Neut # (Auto) 3.0 Lymph # (Auto) 3.1 [place] # (Auto) 1.0 H Eos # (Auto) 0.3 Baso # (Auto) 0.1 Immature Gran # (Auto) 0.02 H Absolute Nucleated RBC 0.00 Immature Gran % 0 Nucleated RBC % 0 Sodium 142 Potassium 3.7 Chloride 108 H Carbon Dioxide 31.0 Anion Gap 3 L BUN 13 Creatinine 0.8 Estim Creat Clear Calc 56.6 L eGFR > 60 BUN/Creatinine Ratio 16 Glucose 93 Calculated Osmolality 283 Calcium 8.9 Corrected Calcium 9.1 Magnesium 2.3 Total Bilirubin 0.4 AST 26 ALT 14 Alkaline Phosphatase 69 Total Protein 5.5 L Albumin 3.7 Globulin 1.8 L Albumin/Globulin Ratio 2.1 Assessment & Plan Problem List (1) Generalized weakness: Status: Resolved Assessment and plan: overall it is improving MRI brain and EEG: Negative patient is stable for discharge (2) Back pain: Status: Chronic Assessment and plan: acute on chronic with pain at the site of the fall in the rib cage, got topical lidocaine patch and Tylenol as needed. we could resume gabapentin if she has been taking as an outpatient for pain control (3) Hypokalemia: Status: Acute Assessment and plan: potassium is normalized at 3.7
== END 2025-01-20 14:47 | disposition home or self-care (01) | DRG 69 ==
LOC: SERX 10:40 → SERHOLD 14:05 → S2NX 01-19 07:55
PROVIDERS: Student in an Organized Health Care Education/Training Program; Admitting Provider Internal Medicine; Emergency Provider Student in an Organized Health Care Education/Training Program; PCP Family Medicine; Visit Provider Internal Medicine
DX: G45.9 Transient cerebral ischemic attack, unspecified (principal); E87.3 Alkalosis; I24.89 Other forms of acute ischemic heart disease; G93.49 Other encephalopathy; D64.9 Anemia, unspecified; L29.9 Pruritus, unspecified; E53.8 Deficiency of other specified B group vitamins; R47.81 Slurred speech; I10 Essential (primary) hypertension; F32.A Depression, unspecified; R00.1 Bradycardia, unspecified; M79.669 Pain in unspecified lower leg; E87.6 Hypokalemia; E83.39 Other disorders of phosphorus metabolism; R19.7 Diarrhea, unspecified; R79.89 Other specified abnormal findings of blood chemistry; I35.8 Other nonrheumatic aortic valve disorders; F12.90 Cannabis use, unspecified, uncomplicated; Z87.891 Personal history of nicotine dependence; Z98.84 Bariatric surgery status; Z79.899 Other long term (current) drug therapy; Z90.710 Acquired absence of both cervix and uterus; Z88.5 Allergy status to narcotic agent
CPT/HCPCS: 36415; 70450; 70496; 70498; 70544; 71045; 80053; 80061; 80069; 80307; 81001; 82607; 82746; 83036; 83540; 83550; 83735; 84100; 84132; 84439; 84443; 84484; 85025; 92526; 92610; 93005; 93306; 95816; 96374; 97161; 99285; A4649; G0378; J1650; J2060; J3420; J3480; J7040; Q9967; Z7610; A9270

== ENCOUNTER 2025-07-03 22:19 | Emergency (ER) | payer BC, MEDICARE, SELFPAY ==
[2025-07-03 22:20] VITALS: BMI 23.2
--- NOTE | 2025-07-03 22:40 | XR_ITS ---
Examination: AP chest single view Technique upright AP chest single view Date and time: June 23, 2025 10:26 PM INDICATIONS: Chest pain shortness of breath today. FINDINGS: Normal heart size. Lungs are clear. Massive structures are intact IMPRESSION: No active disease
[2025-07-03 22:52] LABS: Basophils # (Auto) 0.1 Thou/mm3 (0.0-0.2); Basophils % (Auto) 1 % (0-2.5); Eosinophils # (Auto) 0.3 Thou/mm3 (0.0-0.5); Eosinophils % (Auto) 3 % (0-10); Hematocrit 32.2 % (36.0-46.0); Hemoglobin 10.2 g/dL (12.0-16.0); Immature Granulocytes Auto 0.04 Thou/mm3 (0.00-0.00); Lymphocytes # (Auto) 4.0 Thou/mm3 (1.0-4.8); Lymphocytes % (Auto) 31 % (10-50); Mean Corpuscular HGB Conc 31.7 g/dl (31.0-37.0); Mean Corpuscular Hemoglobin 23.2 pg (25.0-35.0); Mean Corpuscular Volume 73 fL (80-100); Monocytes # (Auto) 1.2 Thou/mm3 (0.0-0.8); Monocytes % (Auto) 9 % (0-12); Neutrophils # (Auto) 7.2 Thou/mm3 (1.8-7.7); Neutrophils % (Auto) 56 % (37-80); Nucleated Red Blood Cell # 0.00 Thou/mm3 (0.00-0.00); Nucleated Red Blood Cell % 0 /100 WBC (0); Platelet Count 455 Thou/mm3 (140-440); RDW Standard Deviation 43.8 fL (36.4-46.3); Red Blood Count 4.39 Miln/mm3 (4.00-5.20); White Blood Count 12.9 Thou/mm3 (3.6-11.0)
--- NOTE | 2025-07-03 23:03 | PD.EDCHEST ---
ED Chest Pain RME/HPI General Chief Complaint: Chest Pain Stated Complaint: CHEST PAIN Time Seen by Provider: 07/03/25 22:50 Arrival date/time: 07/03/25 22:19 Related Data Home Medications ?Medication ?Instructions ?Recorded ?Confirmed HCTZ/TRIAMTERENE (DYAZIDE 25/37.5) See Rx Instructions .Route 05/08/16 01/18/25 Held on 01/20/25. .COMPLEX ##30 Instructions: Resume on 01/26/25. hold until your primary care physician follow up hydroxyzine HCl 25 mg tablet 25 mg PO QDAY 01/18/25 01/18/25 loratadine 10 mg tablet (Allergy 10 mg PO Q24H 01/18/25 01/18/25 Relief (loratadine)) sertraline 50 mg tablet 50 mg PO Q24H 01/18/25 01/18/25 Allergies Allergy/AdvReac Type Severity Reaction Status Date / Time codeine Allergy Mild Anaphylaxis Verified 07/03/25 22:27 tramadol Allergy Verified 07/03/25 22:27 ED Exam Narrative Physical exam: Generally patient is alert no obvious distress, heart regular rate and rhythm, lungs clear to auscultation, abdomen is soft nontender no pulsating mass, extremities no edema neurologic exam without focal motor or sensory deficits. Course Quality Measures none Orders Category Date Time Status EKG (ED ONLY) *Do not use* NOW Care 07/03/25 22:39 Completed IV [Insert IV] NOW Care 07/03/25 22:40 Active EKG (ED Only) Stat Exams 07/03/25 22:39 Ordered XR chest 1V Stat Exams 07/03/25 22:40 Completed BNP [B-Type Natriuretic Peptide] Stat Lab 07/03/25 22:40 Received CBC Stat Lab 07/03/25 22:40 Completed CMP [Comprehensive Metabolic Panel] Stat Lab 07/03/25 22:40 Completed Lipase Stat Lab 07/03/25 22:40 Completed Troponin I Stat Lab 07/03/25 22:40 Completed Chest Pain MDM Narrative MDM Narrative:: Scribe Attestation: Tiana Gonzalez, am scribing for and in the presence of Dr. Chaney. Provider Notation: Although this document has been carefully reviewed, there may still be some phonetic and other typographical errors.? These errors are purely grammatical due to imperfections in the software program and should not be construed in any way to? compromise the substance of the patient's medical care during this visit. EKG is nonischemic showing sinus bradycardia at a rate of 52 without ischemic change or ectopy. Troponin is not elevated. This troponin was greater than 3 hours from the onset of chest pain. Heart score is 3. Chest x-ray normal. I do long discussion with the patient and her family. She does have cardiology follow-up. She is stable for discharge home. She is to return to the emergency room if condition worsens such as severity of pain the pain starts to last longer or become more frequent. Patient data External records reviewed:: [facility] previous records Clinical information provided by:: patient Social determinants that could affect healthcare access:: none Patient has the following chronic illnesses:: None How is presenting disease/condition affected by chronic disease/condition?: exacerbated by Evaluation data The following diagnostics were reviewed and interpreted by me:: lab results, radiology exam(s) and EKG tracing(s) Lab and/or radiology exams considered but not ordered:: None Interpretation Summary: RADIOLOGY Chest X-Ray: Medications / Prescriptions Medications or Prescriptions considered but not ordered:: None Medication administrations:: See above Consultations Consultation(s) initiated? (list below): No Diagnosis Chest Pain Differential Diagnosis: fracture of rib, pneumothorax, stable angina, unstable angina pectoris, atypical chest pain, st elevation myocardial infarction, costochondritis and chest pain Most likely diagnosis given after review of the tests above:: None Admission Indicated Admission indicated?: not indicated Admission Request Was there a request for admission?: No Disposition Plan Disposition Plan: Discharge Discharge Attestation Discharge Attestation: The patient and all family members were given an opportunity to ask questions and understood the discharge instructions. Discharge instructions specifically effects, indications for sooner follow up or return to the emergency department, and the expected course of current diagnosis. Patient condition: Stable Discharge Plan Plan Patient Disposition: HOME (Self Care) Prescriptions/Referrals Prescriptions/Med Rec: No Action HCTZ/TRIAMTERENE (DYAZIDE 25/37.5) 1 CAP capsule See Rx Instructions .ROUTE .COMPLEX Qty: 30 Rx Instructions: 37.5-25mg PO QD; hydroxyzine HCl 25 mg tablet 25 mg PO QDAY Patient Comments: TAKE 1 TABLET BY MOUTH EVERY DAY NEEDED FOR 90 DAYS sertraline 50 mg tablet 50 mg PO Q24H Patient Comments: TAKE 1 TABLET BY MOUTH EVERY DAY FOR 90 DAYS loratadine [Allergy Relief (loratadine)] 10 mg tablet 10 mg PO Q24H Patient Comments: TAKE 1 TABLET BY MOUTH ONCE A DAY FOR ALLERGY Problem List Clinical Impression: Chest pain Patient/Caregiver Discharge Instructions Education Materials: ED Chest Pain, Uncertain Cause Additional Instructions: Continue current medications. Follow-up with your barrel cooper. Return to ER as needed or if condition worsens such as the severity of the pain increases the pain becomes more frequent or last longer. Print Language: Turkish Stand Alone Forms: [employer] Award Info., Patient Portal Info Letter
[2025-07-03 23:11] LABS: Alanine Aminotransferase 15 U/L (10-49); Albumin, Serum 4.6 gm/dL (3.4-4.8); Albumin/Globulin Ratio 2.2 (1.2-2.2); Alkaline Phosphatase 99 U/L (46-116); Anion Gap 9 (7-16); Aspartate Amino Transferase 23 U/L (0-34); BUN/Creatinine Ratio 21 Ratio (12-20); Bilirubin,Total 0.3 mg/dL (0.3-1.2); Blood Urea Nitrogen 21 mg/dL (9-23); Calcium 10.0 mg/dL (8.3-10.6); Calcium (Corrected) 10.0 mg/dL (8.5-10.1); Carbon Dioxide 25.8 mMol/L (20.0-31.0); Chloride 104 mMol/L (98-107); Creatinine (Component) 1.0 mg/dL (0.6-1.3); Estimated Creatinine Clearance 43.2 mL/min (>60); Globulin 2.1 gm/dL (2.3-3.5); Glucose 88 mg/dL (74-106); Lipase 39 U/L (12-53); Osmolality,Calculated 279 (275-295); Potassium 3.9 mMol/L (3.4-5.1); Sodium 139 mMol/L (136-145); Total Protein 6.7 gm/dL (5.7-8.2); Troponin I < 0.020 ng/mL (0.0-0.045); eGFR > 60 See Note
--- NOTE | 2025-07-03 23:28 | PC.NURSE ---
Pt presents with CP that started around 1200 today. Pt was driving when the CP started. Left CP that radiates to the left shoulder blade and pt c/o electrical impulse type pain to her throat intermittently. The CP has been constant and the pain has been pulsing. Pt also reports feeling cold and clammy after CP started. Wheezes noted to right upper lobe and and pleural rub noted to left lobe upper and lower. Pt currently c/o 5/10 achey cp at this time. Pt reports heartburn today that increased with the CP but is now reduced.
[2025-07-03 23:38] VITALS: BP 136/85; PULSE 53; RESP 16; TEMP 36.6; O2SAT 96
[2025-07-03 23:39] LABS: B-Type Natriuretic Peptide 57 pg/mL (0-100)
[2025-07-04 00:25] VITALS: PULSE 50; RESP 16; O2SAT 96
== END 2025-07-04 00:25 | disposition home or self-care (01) ==
LOC: SERX 07-04 02:10
PROVIDERS: Emergency Provider Emergency Medicine; PCP Internal Medicine
DX: R07.9 Chest pain, unspecified (principal); R00.1 Bradycardia, unspecified
CPT/HCPCS: 36415; 71045; 80053; 83690; 83880; 84484; 85025; 93005; 99283